=== PATIENT | male | born 1955 ===

== ENCOUNTER 2020-11-18 11:24 | Outpatient (REF) | payer MEDICARE, SELFPAY ==
[2020-11-18 14:45] LABS: Prostate Specific Antigen 2.22 ng/mL (<0.05-4.0)
== END 2020-11-18 11:25 | disposition home or self-care (01) ==
LOC: HO.HMGCLDS 11:24
PROVIDERS: PCP Internal Medicine; Visit Provider Urology
DX: N41.1 Chronic prostatitis (principal); Z12.5 Encounter for screening for malignant neoplasm of prostate
CPT/HCPCS: 36415; 84153

== ENCOUNTER → 2020-11-19 11:04 | Outpatient (BNVA) | payer MEDICARE, SELFPAY | PROVIDERS: PCP Internal Medicine; Referring Provider Internal Medicine; Visit Provider Urology | DX: Z13.89 Encounter for screening for other disorder (principal) | CPT/HCPCS: Q3014 ==

== ENCOUNTER 2021-04-20 11:35 | Outpatient (REF) | payer MEDICARE, SELFPAY ==
[2021-04-20 13:42] LABS: Hematocrit 43.5 % (42-52); Hemoglobin 14.7 g/dl (14.0-18.0); Mean Corpuscular HGB Conc 33.8 g/dl (31.0-36.0); Mean Corpuscular Hemoglobin 31.5 pg (27.0-33.0); Mean Corpuscular Volume 93.3 fL (80-98); Mean Platelet Volume 12.4 fL (9.4-12.4); Platelet Count 134 X10*3/uL (160-400); Red Blood Count 4.66 X10*6/uL (4.60-5.80); White Blood Count 6.6 X10*3/uL (4.8-10.8)
[2021-04-20 14:18] LABS: Alanine Aminotransferase 25 U/L (0-40); Albumin Level 4.4 g/dL (3.5-5.0); Alkaline Phosphatase 83 U/L (39-117); Anion Gap 14 (12-20); Aspartate Amino Transferase 25 U/L (5-37); Bilirubin Total 0.6 mg/dL (0.0-1.0); Blood Urea Nitrogen 13 mg/dL (9-16); Calcium 9.7 mg/dL (8.4-10.2); Carbon Dioxide 24 mmol/L (22-29); Chloride 107 mmol/L (96-108); Cholesterol 132 mg/dL; Estimated Glomerular Filt Rate > 60; Glucose Fasting 94 mg/dL (60-99); HDL Cholesterol 33 mg/dL; LDL Cholesterol Calculated 75 mg/dl; Potassium 4.1 mmol/L (3.3-5.1); Sodium 141 mmol/L (135-145); Total Protein 7.1 g/dL (6.5-8.0); Triglycerides 124 mg/dL
[2021-04-20 14:41] LABS: Prostate Specific Antigen Scr 2.19 ng/mL (<0.05-4.0); Vitamin D 25-OH Total 30.7 ng/mL (>30)
[2021-04-20 16:28] LABS: Glucose Urine UA NEG (NEG); Leukocyte Esterase Urine NEG (NEG); Nitrite Urine NEG (NEG); Urine Blood NEG (NEG); Urine Ketones NEG (NEG); Urine Protein NEG (NEG-TRACE)
[2021-04-20 16:29] LABS: Appearance Urine CLEAR; Color Urine YELLOW
[2021-04-20 16:37] LABS: RBC Urine 0 /HPF (0); WBC Urine 0 /HPF (0-4)
== END 2021-04-20 11:36 | disposition home or self-care (01) ==
LOC: HO.HMGCLDS 11:35
PROVIDERS: PCP Internal Medicine; Visit Provider Internal Medicine
DX: E78.5 Hyperlipidemia, unspecified (principal); E55.9 Vitamin D deficiency, unspecified; N40.0 Benign prostatic hyperplasia without lower urinary tract symptoms; F32.9 Major depressive disorder, single episode, unspecified; Z12.5 Encounter for screening for malignant neoplasm of prostate
CPT/HCPCS: 36415; 80053; 80061; 81001; 82306; 84153; 85027

== ENCOUNTER 2021-05-06 09:38 | Outpatient (REF) | payer MEDICARE, SELFPAY ==
[2021-05-06 12:36] LABS: TSH reflex Free T4 1.55 uIU/mL (0.32-4.0)
== END 2021-05-06 09:39 | disposition home or self-care (01) ==
LOC: HO.HMGCLDS 09:38
PROVIDERS: PCP Internal Medicine; Visit Provider Internal Medicine
DX: F32.9 Major depressive disorder, single episode, unspecified (principal); E78.5 Hyperlipidemia, unspecified; R53.83 Other fatigue; R13.10 Dysphagia, unspecified
CPT/HCPCS: 36415; 84443

== ENCOUNTER → 2021-05-25 13:31 | Outpatient (BNVA) | payer MEDICARE, SELFPAY | PROVIDERS: PCP Internal Medicine | DX: R10.2 Pelvic and perineal pain (principal); N40.0 Benign prostatic hyperplasia without lower urinary tract symptoms; G89.29 Other chronic pain | CPT/HCPCS: 51798; 99212 ==

== ENCOUNTER → 2021-06-16 10:54 | Outpatient (BNVA) | payer MEDICARE, SELFPAY | PROVIDERS: PCP Internal Medicine; Referring Provider Internal Medicine; Visit Provider Nurse Practitioner | DX: K21.9 Gastro-esophageal reflux disease without esophagitis (principal); R13.12 Dysphagia, oropharyngeal phase | CPT/HCPCS: 99202 ==

== ENCOUNTER 2021-07-15 09:49 | Outpatient (REF) | payer MEDICARE, SELFPAY ==
--- NOTE | ~2021-07-15 | FL_ITS ---
EXAMINATION: FL BARIUM SWALLOW CLINICAL INFORMATION: Dysphagia. COMPARISON: None TECHNIQUE: Fluoroscopic assessment of the esophagus was performed in various upright and prone obliquities utilizing thin and thick high density barium contrast material and effervescent granules. A 13 mm barium tablet was also utilized. FINDINGS: There is normal oral bolus control and transfer. Normal posterior tilt of the epiglottis with elevation of the hyoid. There is lack of relaxation of the cricopharyngeal muscle. Upon ingestion of the 13 mm barium tablet, there is initial delayed passage in the region of the cervical esophagus. There was then delayed passage at the midesophagus, which progressed after multiple swallows of water. There was then delay at the region of the gastroesophageal junction, which also cleared with additional water. The esophagus was normal in course, caliber, and contour. There was normal distensibility with no fixed segment of narrowing. No focal mucosal abnormality was identified. Mild esophageal dysmotility was observed. Contrast passed freely across the gastroesophageal junction into the stomach. No significant hiatal hernia. Mild gastroesophageal reflux was observed. FLUOROSCOPY TIME: 1.4 minutes DOSE AREA PRODUCT: 10.377 Gy-cm2 (cárdenas-centimeter squared) FL/FL barium swallow IMPRESSION: Mild esophageal dysmotility as evidenced by delayed passage of the barium tablet. Mild gastroesophageal reflux. Cricopharyngeal bar.
== END 2021-07-15 09:50 | disposition home or self-care (01) ==
LOC: HO.XRAY 09:49
PROVIDERS: PCP Internal Medicine; Visit Provider Nurse Practitioner
DX: R13.12 Dysphagia, oropharyngeal phase (principal); K21.9 Gastro-esophageal reflux disease without esophagitis
CPT/HCPCS: 74220

== ENCOUNTER 2021-07-27 10:30 | Day surgery (SDC) | payer MEDICARE, SELFPAY ==
--- NOTE | 2021-07-26 14:21 | HO.ANESPROP2 ---
Documented by User: Olena Ibarra NP 07/26/21 14:22 HPI - Anesthesia Eval Consult details Narrative: 66yo M for Upper Endoscopy PMF Active Problems Active Problems: All Active Problems (Updated 06/16/21 @ 11:19 by JORY Rodrigues) GERD (gastroesophageal reflux disease) (Acute) Oropharyngeal dysphagia (Acute) Fatigue (Acute) Chronic male pelvic pain (Acute) Vitamin D deficiency (Acute) BPH (benign prostatic hyperplasia) (Acute) Hyperlipidemia (Acute) Depression (Acute) Past Medical History Medical History (Updated 07/27/21 @ 11:03 by Vania Saba RN) Anxiety BPH (benign prostatic hyperplasia) Chronic male pelvic pain Depression Facet arthropathy, lumbar Fatigue GERD (gastroesophageal reflux disease) Hyperlipidemia Insomnia Sleep apnea Vitamin D deficiency Family History Family History Mother COPD (chronic obstructive pulmonary disease) Brain aneurysm Father Carotid stenosis Brother Heart problem Brother No problems noted. Surgical History Surgical History H/O colonoscopy History of rhinoplasty Hx of cholecystectomy Social History Social History Housing: House Patient Tobacco Use Status: Never used Tobacco e-Cigarette/Vaping Use: Never Used Use of substances other than those prescribed or required for medical reasons: No Are you DNR?: No Advance Directives: No Advance Directives Information Provided: Yes Current occupational status: retired Meds Allergies Allergy/AdvReac Type Severity Reaction Status Date / Time Penicillins Allergy Unknown Hives Verified 07/27/21 11:04 Home Medications Medication Instructions Recorded Confirmed Last Taken Type gabapentin 300 mg capsule 300 mg PO BEDTIME 10/29/20 07/21/21 Unknown History olanzapine 5 mg tablet 5 mg PO BEDTIME 10/29/20 07/21/21 Unknown History sertraline 100 mg tablet 100 mg PO DAILY 10/29/20 07/21/21 Unknown History zolpidem 10 mg tablet 10 mg PO BEDTIME PRN 10/29/20 07/21/21 Unknown History Exam Exam Date and Time: July 26, 2021 1421 Pertinent Lab Results Pertinent Lab Results: Laboratory Tests 04/20/21 04/20/21 11:40 11:40 WBC 6.6 Hgb 14.7 Hct 43.5 Plt Count 134 L Sodium 141 Potassium 4.1 Chloride 107 Carbon Dioxide 24 BUN 13 Creatinine 1.06 Assessment and Plan Assessment Anesthesia Assessment: Chart Reviewed Documented by User: Virginie Gomez MD 07/27/21 11:08 [facility] Past Medical History Medical History (Updated 07/27/21 @ 11:03 by Vania Saba RN) Anxiety BPH (benign prostatic hyperplasia) Chronic male pelvic pain Depression Facet arthropathy, lumbar Fatigue GERD (gastroesophageal reflux disease) Hyperlipidemia Insomnia Sleep apnea Vitamin D deficiency Family History Family History Mother COPD (chronic obstructive pulmonary disease) Brain aneurysm Father Carotid stenosis Brother Heart problem Brother No problems noted. Family history of problems with anesthesia: No Surgical History Surgical History H/O colonoscopy History of rhinoplasty Hx of cholecystectomy History of Problems with Anesthesia: No Social History Social History Housing: House Patient Tobacco Use Status: Never used Tobacco e-Cigarette/Vaping Use: Never Used Use of substances other than those prescribed or required for medical reasons: No Are you DNR?: No Advance Directives: No Advance Directives Information Provided: Yes Current occupational status: retired Meds Allergies Allergy/AdvReac Type Severity Reaction Status Date / Time Penicillins Allergy Unknown Hives Verified 07/27/21 11:04 Home Medications Medication Instructions Recorded Confirmed Last Taken Type gabapentin 300 mg capsule 300 mg PO BEDTIME 10/29/20 07/21/21 Unknown History olanzapine 5 mg tablet 5 mg PO BEDTIME 10/29/20 07/21/21 Unknown History sertraline 100 mg tablet 100 mg PO DAILY 10/29/20 07/21/21 Unknown History zolpidem 10 mg tablet 10 mg PO BEDTIME PRN 10/29/20 07/21/21 Unknown History Exam Airway Mallampati Class: II (Missing one bottom) TM Dist: >3cm Neck ROM: Full Loose/Missing/Broken Teeth: Yes (One bottom) Heart: rrr Lungs: cta Assessment and Plan Assessment Anesthesia Assessment: Anesthesia Plan Discussed and Chart Reviewed Final Anesthetic Review Family History of Problems with Anesthesia: No History of Problems with Anesthesia: No NPO: Yes ASA Class: III Final Preanesthetic Review: No Changes in Pt Med Stat and Meds/Allgs Chart Reviewed Patient Risk: Intermediate Procedure Risk: Intermediate Anesthetic Plan Anesthetic Plan: MAC: Disposition: Standard PACU
--- NOTE | 2021-07-27 10:42 | MHC.SHP ---
Pre-Procedural Eval Section A Date of Service: 07/27/21 Section B Chief Complaint: Dysphagia Relevant Family History (Specify if Yes): No Relevant Social History: None Present Medications: see Short Stay Collaborative assessment Medical History: Significant History (Anxiety BPH (benign prostatic hyperplasia) Chronic male pelvic pain Depression Facet arthropathy, lumbar Fatigue GERD (gastroesophageal reflux disease) Hyperlipidemia Insomnia Vitamin D deficiency) History of Previous Operations: Relevant previous surgery/procedure and date(s) (rhinoplasty, cholecystectomy) Allergies: Allergies Allergy/AdvReac Type Severity Reaction Status Date / Time Penicillins Allergy Unknown Hives Verified 07/21/21 12:47 Review of Systems Sugical H&P ROS: Negative: Constitution, Cardiovascular, Respiratory, Neurological, Psychiatric, Hem-Onc, Allergic/Immunologic, Gastrointestinal, Genitourinary, Musculoskeletal, Integumentary, Endocrine and Eyes/Ears/Nose/Throat Exam Surgical H&P Exam: Normal: HEENT, Normal: Heart, Normal: Lungs, Normal: Extremities, Normal: Abdomen, Normal: Skin and Normal: Neurological Plan Diagnosis/Plan: Unchanged I have reviewed the history and physical and performed a pertinent physical examination on my patient. No changes have occurred unless specified.
[2021-07-27 10:45] VITALS: BP 127/76; PULSE 74; RESP 16; TEMP 36.2; O2SAT 97; BMI 28.8
[2021-07-27] MEDS: Lactated Ringers 1,000 ML 100 ML IVCONT (11:02)
--- NOTE | 2021-07-27 11:18 | PM.OP ---
Brief Operative Note Date of Service: 07/27/21 Pre-op diagnosis: dysphagia Post-op diagnosis: same Procedure: see op note Surgeon: Rafaela Kaiser MD Anesthesia: MAC Was an Dynamics Ax Technical Architect used for this Procedure?: No Estimated blood loss (mL): 0 Condition: stable Disposition: PACU
--- NOTE | 2021-07-27 11:19 | W.PM.OPN ---
Operative Note Operative Note Date of Service: 07/27/21 Narrative: Procedure Description: EGD FLEXIBLE TRANSORAL UPPER GASTROINTESTINAL ENDOSCOPY UPPER ENDOSCOPY Consent: Indications for the procedure and potential complications of bleeding, perforation, reaction to medications and missed diagnosis were discussed with the patient and informed consent was obtained. Instrument: Olympus GIF H 190 J mid size upper endoscope Monitoring: Vital signs and clinical assessment, continuous EKG monitoring, Pulse oximetry, Carbon Dioxide monitoring and blood pressure monitoring were done throughout the procedure. Procedure: The patient was placed in the left lateral decubitis position and pre-procedure medications were administered and a bite block was placed. The endoscope was inserted into the mouth and advanced under direct vision to the third part of duodenum. A careful inspection was made as the upper endoscope was withdrawn including a retroflexed examination of the proximal stomach; Findings and interventions are described below. Findings: Larynx:normal Esophagus: GE junction at 40 cm, diaphragm hiatus at 40 cm, no varices or esophagitis, bx taken from GEJ, and distal/proximal esophagus in separate jars. LES dilated to 20 mm and UES to 18 mm. No tears seen. Stomach: Patchy gastric erythema more pronounced in the antrum. Biopsies were obtained. Grade 2 flap valve on retroflexed examination of the cardia. Duodenum: Normal bulb and descending duodenum, bx taken Intervention: Biopsies as noted above, balloon dilation Impression/Findings: gastritis PLAN: Change omeprazole to pantoprazole and see if get better response If h pylori pos then treat if dysphagia persists then refer for esophageal manometry and ph impedance study
[2021-07-27 12:04] VITALS: BP 102/67; PULSE 70; RESP 10; TEMP 36.9; O2SAT 95
[2021-07-27 12:19] VITALS: BP 123/75; PULSE 72; RESP 18; TEMP 36.9; O2SAT 97
== END 2021-07-27 13:55 | disposition home or self-care (01) ==
PROVIDERS: PCP Internal Medicine; Visit Provider Internal Medicine Gastroenterology
PROC: 0DJ08ZZ Inspection of Upper Intestinal Tract, Via Natural or Artificial Opening Endoscopic (ICD-10-PCS; CPT 43235; principal; 2021-07-27 12:00)
DX: R13.12 Dysphagia, oropharyngeal phase (principal); R09.89 Other specified symptoms and signs involving the circulatory and respiratory systems; K21.9 Gastro-esophageal reflux disease without esophagitis; K29.50 Unspecified chronic gastritis without bleeding; K44.9 Diaphragmatic hernia without obstruction or gangrene; J30.9 Allergic rhinitis, unspecified; E78.5 Hyperlipidemia, unspecified; E55.9 Vitamin D deficiency, unspecified; F41.1 Generalized anxiety disorder; R53.83 Other fatigue; Z88.0 Allergy status to penicillin; Z90.49 Acquired absence of other specified parts of digestive tract; Z79.899 Other long term (current) drug therapy
CPT/HCPCS: 43249; 43239; 88305; 88342; C1726; J3010

== ENCOUNTER → 2021-08-11 10:49 | Outpatient (BNVA) | payer MEDICARE, SELFPAY | PROVIDERS: PCP Internal Medicine; Referring Provider Internal Medicine; Visit Provider Nurse Practitioner | DX: K21.9 Gastro-esophageal reflux disease without esophagitis (principal); R13.12 Dysphagia, oropharyngeal phase | CPT/HCPCS: 99212 ==

== ENCOUNTER 2021-09-28 14:39 | Outpatient (REF) | payer MEDICARE, SELFPAY ==
--- NOTE | ~2021-09-28 | FL_ITS ---
EXAMINATION: XR BARIUM SWALLOW CLINICAL INFORMATION: Dysphagia. COMPARISON: None. TECHNIQUE: Fluoroscopic guidance was provided for modified barium swallow performed by the speech and hearing department. The patient was administered liquid barium and food mixed with barium. FINDINGS: No aspiration or penetration is seen. There is some retention seen in the vallecula. See speech and hearing report for detailed findings. FLUOROSCOPY TIME: 1.3 minutes. DOSE AREA PRODUCT: 1.3 Gy-cm2. SAVED IMAGES: 1 saved fluoroscopic image. FL/FL barium swallow modified IMPRESSION: Retention in the vallecula. No aspiration or penetration seen.
--- NOTE | 2021-09-30 17:45 | MHC.SL.IMP ---
Date of Plan of Treatment: 09/28/21 Onset of Symptoms/Illness: 07/29/21 Date Treatment Started: 09/28/21 Admitting Diagnosis: Anxiety BPH Chronic male pelvic pain Depression Fatigue GERD Hyperlipidemia Insomnia Sleep apnea Vitamin D deficiency Primary Speech & Language Diagnosis: R13.12 Oropharyngeal Phase Dysphagia Reason for Today's Visit: 61597 Modified Barium Swallow Study Pre-evaluation Dietary Consistencies: Regular Pre-evaluation Liquid Consistency: Thin Pre-evaluation Medication Administration: Whole with Liquid Medical History: [place], [place] Modified Barium Swallow Study Fluoroscopic Evaluation of Swallowing Function CPT Code 22966 Evaluation Year: 2021 Reason for Study: Patient reports globus sensation. Referring Physician: Lea Hood NP Evaluating Clinician: Grazyna Pacheco MA, CCC-OPERATOR RECEPTIONIST Study Number: 1 Patient Name: Ajay Nolasco Status: Outpatient, Ambulatory Age: 66 Gender: Male MEDICAL HISTORY: Year of Onset or Diagnosis: 2021 Comorbidities: Anxiety BPH Chronic male pelvic pain Depression Fatigue GERD Hyperlipidemia Insomnia Sleep apnea Vitamin D deficiency Current (pre-evaluation) Intake/Diet: Route: PO Diet Grade: Regular Liquid Consistencies: Thin Pre-Study Functional Oral Intake Scale (FOIS): 7- Total oral intake with no restrictions Pain: None reported at time of study SUBJECTIVE: Patient is a 66 year old male who presented to this exam alone. Per chart review, patient was seen by G.I. recently, when he reported that he has had trouble swallowing for a couple months. He reports the sensation that his throat is tightening up when he eats. He reports this only happens with dry foods and never with liquids. Patient stated that he had only ?minor choking that he feels is ?not life threatening.?? Patient denies odynophagia. Patient had upper endoscopy and dilation done mostly empirically per G.I. specialist, to see if it would help. Patient has GERD and also reported that despite the medication he takes, he still feels burning in his throat. He was changed from omeprazole to pantoprazole NA. Patient was ordered MBSS per G.I. with consideration of possible neuro consult. -Barium swallow x-ray 07/15/21: ?Mild esophageal dysmotility as evidenced by delayed passage of the barium tablet. Mild gastroesophageal reflux. Cricopharyngeal bar.? Oral Motor Exam Facial Symmetry: Symmetrical Mouth Occlusion: Normal Oral-Facial Teeth Characteristics: Intact/Normal Oral-Facial Lip Pucker Description: Normal Oral-Facial Smile (Lips) Description: Normal Oral-Facial Puff Cheeks Description: Normal Tongue Size: Normal Tongue Excursion Description: Normal Tongue Range of Movement Description: Normal Tongue Speed of Movement Description: Normal Tongue Strength of Movement (against opposing pressure): Normal Tongue Movement Characteristics: Normal/Absent Is patient able to manage secretions?: Yes Food and Liquid Trials: Oral Impairment: Lip Closure: 0=No labial escape Oral Impairment: Tongue Control During Bolus Hold: Did not test Oral Impairment: Bolus Preparation/Mastication: 1=Slow prolonged chewing/mashing with complete re-collection Oral Impairment: Bolus Transport/Lingual Motion: 2=Slowed tongue motion Oral Impairment: Oral Residue: 1=Trace residue lining oral structures Oral Impairment:Initiation of Pharyngeal Swallow: 3=Bolus head in pyriforms Pharyngeal Impairment: Soft Palate Elevation: 0=No bolus between soft palate (SP)/pharyngeal wall (PW) Pharyngeal Impairment: Laryngeal Elevation: 0=Complete superior movement of thyroid cartilage (see description) Pharyngeal Impairment: Anterior Hyoid Excursion: 0=Complete anterior movement Pharyngeal Impairment: Epiglottic Movement: 0=Complete inversion Pharyngeal Impairment: Laryngeal Vestibular Closure:: 0=Complete: no air/contrast in laryngeal vestibule Pharyngeal Impairment: Pharyngeal Stripping Wave: 0=Present: complete Pharyngeal Impairment: Pharyngeal Contraction: Did not test Pharyngeal Impairment: Pharyngoesophageal Segment Openin=Complete distension and complete duration: no obstruction of flow Pharyngeal Impairment: Tongue Base (TB) Retraction: 3=Wide column of contrast/air between TB and posterior PW Pharyngeal Impairment: Pharyngeal Residue: 2=Collection of residue within or on pharyngeal structures Pharyngeal Impairment: Esophageal Clearance Upright Position: Did not test Impressions and Recommendations Clinical Observations: OBJECTIVE: Time-out: performed at 02:45 Evaluation Start: 02:30; Stop: 02:40 Patient Positioning: Seated 70-90 degrees Viewing Planes: LATERAL ONLY Contrast: MBSImP? Standardized Protocol using commercially prepared, standardized Barium viscosities, including: Varibar? THIN LIQUID (40% w/v, <15 cps) , 1/2 Shortbread Cookie (1 x1 x.25 ) MBSImP ID: [id number] MBSImP Results: Lip closure for intraoral bolus containment resulted in no labial escape. Tongue control during bolus hold could not be assessed due to logistical reasons not related to physiologic impairment. Bolus preparation and mastication resulted in slow, prolonged chewing/mashing but with complete re-collection. Bolus transport/lingual motion was with slowed tongue motion. Oral residue was a trace, lining oral structures. Initiation of the pharyngeal swallow occurred when the bolus head was in the pyriform sinuses. Soft palate elevation resulted in no bolus between the soft palate and the pharyngeal wall. Laryngeal elevation demonstrated complete superior movement of the thyroid cartilage with complete approximation of the arytenoids to the epiglottic petiole. Anterior hyoid excursion demonstrated complete anterior movement. Epiglottic movement resulted in complete inversion. Laryngeal vestibular closure was complete, as indicated by no air or contrast within the laryngeal vestibule at the height of the swallow. Pharyngeal stripping wave was present and complete. Pharyngeal contraction could not be determined due to logistical reasons not related to physiologic impairment. Pharyngoesophageal segment opening was completely distended for complete duration with no obstruction of bolus flow. Tongue base retraction allowed a wide column of contrast or air between the retracted tongue base and the posterior pharyngeal wall. Pharyngeal residue was a collection of residue within or on pharyngeal structures. Esophageal clearance in the upright position could not be assessed due to logistical reasons not related to physiologic impairment. Oral Impairment Score: 6 (absence of score, component 2) Pharyngeal Impairment Score: 5 (absence of score, component 13) Esophageal Impairment Score: --- (absence of score, component 17) Laryngeal Penetration and Aspiration: Neither penetration nor aspiration was observed in today's study with Cookie, Thin. Structural Abnormalities Noted: Consistent with cricopharyngeal bar. ASSESSMENT: Clinician Assessment: This exam was conducted by a multidisciplinary team, which included speech-language pathologist, radiologist, and gyroscopic engineering technician. Patient was seated in upright 90 degree position for lateral view only. Patient trialed the following liquid and solid consistencies: 5 mL thin liquid barium, individual cup sip thin liquid barium, sequential cup sip thin liquid barium, pureed solid (mixture applesauce with barium paste), ground solid (mixture chicken salad with barium paste), regular solid (Farideh Doone cookie coated with barium paste), barium tablet with liquid barium. Oral phase characterized by complete lip closure with no anterior escape; slow mastication with piece meal deglutition pattern, resulting in good oral clearance; slowed posterior lingual transport of bolus; delayed initiation of pharyngeal swallow trigger. No nasopharyngeal reflux. Complete laryngeal elevation, with complete epiglottic inversion. No evidence of aspiration or penetration with solids and liquids. No obstruction of flow through pharyngoesophageal segment opening. Trace pooling of liquid in valleculae and pyriforms, which subsequently cleared. Mild residue with consumption of solids in valleculae and pyriforms, which cleared with liquid. Liquid Intake Recommendation: Thin Dietary Recommendations: Regular Medication Administration: Whole with Liquid Compensatory Strategies Recommended: Sitting Upright (90 deg) Double Swallow Small Bites and Sips Alternate Liquids/Solids Supervision during eating and or drinking: None Needed Recommendation for Speech Therapy: NA:Typical Evaluation Text Comment: PLAN: Intake Recommendations: Route: PO Diet Grade: Regular Liquid Consistencies: Thin Post-Study Functional Oral Intake Scale (FOIS): 7- Total oral intake with no restrictions Recommend patient to resume unmodified diet textures- regular solids, thin liquids, pills whole with liquid. OPERATOR RECEPTIONIST discussed with patient strategies to promote pharyngeal clearance: -small bites, one bite at a time -chew food well -moisten food with sauce/gravy as needed -alternate bite of food with sip of liquid Prognosis for Improvement: The prognosis for the patient to meet nutritional needs by mouth is good based on degree of impairment. Clinician - Supplemental, Miscellaneous Communication: It is important to note MBSS objective studies are snapshots in time and Patient function might vary with factors such as time of day or concomitant medical conditions. For this reason, the final treatment plan for this patient should rest with their medical care team. Additional recommendations should be considered with the totality of the Patient in mind. Thank for the opportunity to participate in the care of this patient. If you have any questions about the content of this report, please contact the [facility] at [facility]. Lay Out Machine Operator Clinician/Clinical Fellow: No Supervisory Statement: N/A Speech Language Pathologist: Grazyna Pacheco M.A., [facility]-OPERATOR RECEPTIONIST
== END 2021-09-28 14:40 | disposition home or self-care (01) ==
LOC: HO.XRAY 14:39
PROVIDERS: Visit Provider Nurse Practitioner
DX: R13.12 Dysphagia, oropharyngeal phase (principal)
CPT/HCPCS: 74230; 92611

== ENCOUNTER → 2021-10-04 13:42 | Outpatient (BNVA) | payer MEDICARE, SELFPAY | PROVIDERS: PCP Internal Medicine; Referring Provider Internal Medicine; Visit Provider Nurse Practitioner | DX: R13.12 Dysphagia, oropharyngeal phase (principal); K21.9 Gastro-esophageal reflux disease without esophagitis | CPT/HCPCS: 99212 ==

== ENCOUNTER 2021-10-18 07:39 | Outpatient (REF) | payer MEDICARE, SELFPAY ==
[2021-10-18 11:41] LABS: Hematocrit 44.8 % (42.0-52.0); Mean Corpuscular HGB Conc 33.5 g/dl (31.0-36.0); Mean Corpuscular Hemoglobin 31.4 pg (27.0-33.0); Mean Corpuscular Volume 93.7 fL (80.0-98.0); Mean Platelet Volume 12.9 fL (9.4-12.4); Platelet Count 119 X10*3/uL (160-400); Red Blood Count 4.78 X10*6/uL (4.60-5.80); Red Cell Distribution Width 12.9 % (11.0-16.0); White Blood Count 7.4 X10*3/uL (4.8-10.8)
[2021-10-18 12:08] LABS: Vitamin D 25-OH Total 28.1 ng/mL (>30)
[2021-10-18 12:12] LABS: Alanine Aminotransferase 22 U/L (0-40); Albumin Level 4.3 g/dL (3.5-5.0); Alkaline Phosphatase 89 U/L (39-117); Anion Gap 12 (12-20); Aspartate Amino Transferase 22 U/L (5-37); Bilirubin Total 0.8 mg/dL (0.0-1.0); Blood Urea Nitrogen 19 mg/dL (9-16); Calcium 9.8 mg/dL (8.4-10.2); Carbon Dioxide 27 mmol/L (22-29); Chloride 106 mmol/L (96-108); Cholesterol 130 mg/dL; Estimated Glomerular Filt Rate > 60; Glucose Fasting 106 mg/dL (60-99); HDL Cholesterol 31 mg/dL; LDL Cholesterol Calculated 76 mg/dl; Potassium 3.9 mmol/L (3.3-5.1); Sodium 141 mmol/L (135-145); Total Protein 7.2 g/dL (6.5-8.0); Triglycerides 115 mg/dL
== END 2021-10-18 07:40 | disposition home or self-care (01) ==
LOC: HO.HMGCLDS 07:39
PROVIDERS: Visit Provider Internal Medicine
DX: E55.9 Vitamin D deficiency, unspecified (principal); E78.5 Hyperlipidemia, unspecified; R53.83 Other fatigue; R13.10 Dysphagia, unspecified
CPT/HCPCS: 36415; 80053; 80061; 82306; 85027

== ENCOUNTER → 2021-12-16 07:41 | Outpatient (BNVA) | payer MEDICARE, SELFPAY | PROVIDERS: PCP Internal Medicine; Referring Provider Internal Medicine; Visit Provider Nurse Practitioner | DX: Z01.818 Encounter for other preprocedural examination (principal) | CPT/HCPCS: 99202 ==

== ENCOUNTER 2022-04-14 12:01 | Outpatient (REF) | payer MEDICARE, SELFPAY ==
[2022-04-14 13:35] LABS: MANUAL DIFF FLAG NO
[2022-04-14 13:47] LABS: Basophils Absolute Auto 0.1 X10*3/uL (0.0-0.2); Basophils Percent Auto 1.1 % (0-2); Eosinophils Absolute Auto 0.5 X10*3/uL (0.0-0.4); Eosinophils Percent Auto 7.5 % (0-4); Hematocrit 43.9 % (42.0-52.0); Hemoglobin 15.2 g/dl (14.0-18.0); Imm Gran Abs Auto 0.03 X10*3/uL (0.00-0.03); Imm Gran Pct Auto 0.5 % (0.0-0.4); Lymphocytes Absolute Auto 1.8 X10*3/uL (1.2-4.9); Lymphocytes Percent Auto 27.7 % (20-40); Mean Corpuscular HGB Conc 34.6 g/dl (31.0-36.0); Mean Corpuscular Volume 92.4 fL (80.0-98.0); Mean Platelet Volume 12.7 fL (9.4-12.4); Monocytes Absolute Auto 0.4 X10*3/uL (0.1-1.2); Monocytes Percent Auto 6.3 % (2-11); Neutrophils Absolute Auto 3.7 x10*3/uL (2.0-8.3); Neutrophils Percent Auto 56.9 % (45-73); Platelet Count 128 X10*3/uL (160-400); Red Blood Count 4.75 X10*6/uL (4.60-5.80); Red Cell Distribution Width 12.8 % (11.0-16.0); White Blood Count 6.4 X10*3/uL (4.8-10.8)
[2022-04-14 14:01] LABS: Alanine Aminotransferase 24 U/L (0-40); Albumin Level 4.7 g/dL (3.5-5.0); Alkaline Phosphatase 79 U/L (39-117); Anion Gap 12 (12-20); Aspartate Amino Transferase 25 U/L (5-37); Bilirubin Total 0.6 mg/dL (0.0-1.0); Blood Urea Nitrogen 12 mg/dL (9-16); Calcium 9.5 mg/dL (8.4-10.2); Carbon Dioxide 27 mmol/L (22-29); Chloride 105 mmol/L (96-108); Cholesterol 131 mg/dL; Estimated Glomerular Filt Rate > 60; Glucose Fasting 99 mg/dL (60-99); HDL Cholesterol 34 mg/dL; LDL Cholesterol Calculated 64 mg/dl; Potassium 4.1 mmol/L (3.3-5.1); Sodium 140 mmol/L (135-145); Total Protein 7.4 g/dL (6.5-8.0); Triglycerides 169 mg/dL
[2022-04-14 14:22] LABS: Vitamin D 25-OH Total 32.3 ng/mL (>30)
== END 2022-04-14 12:02 | disposition home or self-care (01) ==
LOC: HO.HMGCLDS 12:01
PROVIDERS: PCP Internal Medicine; Visit Provider Internal Medicine
DX: E78.5 Hyperlipidemia, unspecified (principal); N40.0 Benign prostatic hyperplasia without lower urinary tract symptoms; E55.9 Vitamin D deficiency, unspecified
CPT/HCPCS: 36415; 80053; 80061; 82306; 85025

== ENCOUNTER 2022-04-20 06:53 | Day surgery (SDC) | payer MEDICARE, SELFPAY ==
[2022-04-13 14:10] VITALS: BMI 29.9
--- NOTE | 2022-04-19 12:47 | HO.ANESPROP2 ---
Documented by User: Olena Ibarra NP 04/19/22 12:48 HPI - Anesthesia Eval Consult details Narrative: 66yo M for Colonoscopy s/p EGD 07/2021 with MAC PMFSH Active Problems Active Problems: All Active Problems (Updated 04/14/22 @ 11:46 by Bethanie Rodgers MD) Dysplastic nevi (Acute) Oropharyngeal dysphagia (Acute) Colon cancer screening (Acute) Annual physical exam (Acute) GERD (gastroesophageal reflux disease) (Acute) Fatigue (Acute) Chronic male pelvic pain (Acute) Vitamin D deficiency (Acute) BPH (benign prostatic hyperplasia) (Acute) Hyperlipidemia (Acute) Depression (Acute) Past Medical History Medical History Annual physical exam Anxiety BPH (benign prostatic hyperplasia) Chronic male pelvic pain Depression Facet arthropathy, lumbar Fatigue GERD (gastroesophageal reflux disease) Hyperlipidemia Insomnia Sleep apnea Vitamin D deficiency Family History Family History Mother COPD (chronic obstructive pulmonary disease) Brain aneurysm Father Carotid stenosis Brother Heart problem Brother No problems noted. Family history of problems with anesthesia: No Surgical History Surgical History H/O colonoscopy History of endoscopy History of rhinoplasty Hx of cholecystectomy History of Problems with Anesthesia: No Social History Social History Housing: House Patient Tobacco Use Status: Never used Tobacco e-Cigarette/Vaping Use: Never Used Use of substances other than those prescribed or required for medical reasons: No Are you DNR?: No Advance Directives: No Advance Directives Information Provided: Yes Advance Directives on File: No Current occupational status: retired Cognitive needs: No Hearing needs: No Vision needs: Yes Meds Allergies Allergy/AdvReac Type Severity Reaction Status Date / Time Penicillins Allergy Unknown Hives Verified 04/14/22 11:13 Home Medications Medication Instructions Recorded Confirmed Last Taken Type gabapentin 300 mg capsule 300 mg PO BEDTIME 10/29/20 04/14/22 Unknown History olanzapine 5 mg tablet 5 mg PO BEDTIME 10/29/20 04/14/22 Unknown History sertraline 100 mg tablet 100 mg PO DAILY 10/29/20 04/14/22 07/27/21 09:00 History zolpidem 10 mg tablet 10 mg PO BEDTIME PRN Sleep 10/29/20 04/14/22 Unknown History Exam Exam Date and Time: April 19, 2022 1247 Height,Weight and Vital Signs: Height 5 ft 8.5 in Weight 90.718 kg Pertinent Lab Results Pertinent Lab Results: Laboratory Tests 04/14/22 04/14/22 12:06 12:06 WBC 6.4 Hgb 15.2 Hct 43.9 Plt Count 128 L Sodium 140 Potassium 4.1 Chloride 105 Carbon Dioxide 27 BUN 12 Creatinine 1.05 Assessment and Plan Final Anesthetic Review Family History of Problems with Anesthesia: No History of Problems with Anesthesia: No Documented by User: Gracia Horne MD 04/20/22 07:56 [facility] Active Problems Active Problems: All Active Problems (Updated 04/14/22 @ 11:46 by Bethanie Rodgers MD) Dysplastic nevi (Acute) Oropharyngeal dysphagia (Acute) Colon cancer screening (Acute) Annual physical exam (Acute) GERD (gastroesophageal reflux disease) (Acute) Fatigue (Acute) Chronic male pelvic pain (Acute) Vitamin D deficiency (Acute) BPH (benign prostatic hyperplasia) (Acute) Hyperlipidemia (Acute) Depression (Acute) CHAD- not using CPAP machine. Unable to tolerate Past Medical History Medical History Annual physical exam Anxiety BPH (benign prostatic hyperplasia) Chronic male pelvic pain Depression Facet arthropathy, lumbar Fatigue GERD (gastroesophageal reflux disease) Hyperlipidemia Insomnia Sleep apnea Vitamin D deficiency Family History Family History Mother COPD (chronic obstructive pulmonary disease) Brain aneurysm Father Carotid stenosis Brother Heart problem Brother No problems noted. Surgical History Surgical History H/O colonoscopy History of endoscopy History of rhinoplasty Hx of cholecystectomy Social History Social History Housing: House Patient Tobacco Use Status: Never used Tobacco e-Cigarette/Vaping Use: Never Used Use of substances other than those prescribed or required for medical reasons: No Are you DNR?: No Advance Directives: No Advance Directives Information Provided: Yes Advance Directives on File: No Current occupational status: retired Cognitive needs: No Hearing needs: No Vision needs: Yes Meds Allergies Allergy/AdvReac Type Severity Reaction Status Date / Time Penicillins Allergy Unknown Hives Verified 04/14/22 11:13 Home Medications Medication Instructions Recorded Confirmed Last Taken Type gabapentin 300 mg capsule 300 mg PO BEDTIME 10/29/20 04/14/22 Unknown History olanzapine 5 mg tablet 5 mg PO BEDTIME 10/29/20 04/14/22 Unknown History sertraline 100 mg tablet 100 mg PO DAILY 10/29/20 04/14/22 07/27/21 09:00 History zolpidem 10 mg tablet 10 mg PO BEDTIME PRN Sleep 10/29/20 04/14/22 Unknown History Exam Height,Weight and Vital Signs: Height 5 ft 8.5 in Weight 90.718 kg Vital Signs Temp Pulse Resp BP Pulse Ox O2 Del Method 04/20/22 07:26 96.2 F L 56 16 141/84 H 97 Room Air Airway Mallampati Class: II TM Dist: >3cm Neck ROM: Full Loose/Missing/Broken Teeth: Yes (Some extractions) Heart: RRR Lungs: CTAB Assessment and Plan Assessment Anesthesia Assessment: Anesthesia Plan Discussed and Chart Reviewed Final Anesthetic Review NPO: Yes ASA Class: III Final Preanesthetic Review: No Changes in Pt Med Stat, Meds/Allgs Chart Reviewed, Consent Obtained/Reviewed and Anes Risks/Benef Reviewed Patient Risk: Intermediate Procedure Risk: Low Assessment/Block/Sedation in SS: Assess/Block/Sedation-SS Anesthetic Plan Anesthetic Plan: MAC: Disposition: Standard PACU
--- NOTE | 2022-04-20 07:07 | MHC.SHP ---
Pre-Procedural Eval Section A Date of Service: 04/20/22 Section B Chief Complaint: screening Relevant Family History (Specify if Yes): No Relevant Social History: None Present Medications: see Short Stay Collaborative assessment Medical History: Significant History (Anxiety BPH (benign prostatic hyperplasia) Chronic male pelvic pain Depression Facet arthropathy, lumbar Fatigue GERD (gastroesophageal reflux disease) Hyperlipidemia Insomnia Sleep apnea Vitamin D deficiency) History of Previous Operations: Relevant previous surgery/procedure and date(s) (H/O colonoscopy History of endoscopy History of rhinoplasty Hx of cholecystectomy) Allergies: Allergies Allergy/AdvReac Type Severity Reaction Status Date / Time Penicillins Allergy Unknown Hives Verified 04/14/22 11:13 Review of Systems Sugical H&P ROS: Negative: Constitution, Cardiovascular, Respiratory, Neurological, Psychiatric, Hem-Onc, Allergic/Immunologic, Gastrointestinal, Genitourinary, Musculoskeletal, Integumentary, Endocrine and Eyes/Ears/Nose/Throat Exam Surgical H&P Exam: Normal: HEENT, Normal: Heart, Normal: Lungs, Normal: Extremities, Normal: Abdomen, Normal: Skin and Normal: Neurological Plan Diagnosis/Plan: Unchanged I have reviewed the history and physical and performed a pertinent physical examination on my patient. No changes have occurred unless specified.
[2022-04-20 07:08] VITALS: BMI 28.8
[2022-04-20] MEDS: Lactated Ringers 1,000 ML 100 ML IVCONT (07:23)
[2022-04-20 07:26] VITALS: BP 141/84; PULSE 56; RESP 16; TEMP 35.7; O2SAT 97
--- NOTE | 2022-04-20 08:18 | P.OP_ITS ---
Operative Note Operative Note Date of Service: 04/20/22 Narrative: Operative Information Procedure Description: Colonoscopy Indication: screening Anesthesia: MAC COLONOSCOPY Instrument: Olympus variable stiffness pediatric scope 190L Colonoscopy Monitoring: Vital signs and clinical assessment, continuous EKG monitoring, Pulse oximetry, Carbon Dioxide monitoring and blood pressure monitoring were done throughout the procedure. Colon withdrawal time was 7 minutes. Procedure: The patient was placed in the left lateral decubitis position and pre-procedure medications were administered. After a digital rectal examination of the ano-rectum, the video colonoscope was inserted into the rectum and advanced through the colon to the cecum/TI. The colonoscope was slowly withdrawn in a retrograde panoramic fashion and the colon mucosa was carefully examined including a retroflexed view of the rectum. Findings and interventions are described below. Procedure Difficulty: easy Findings: Terminal Ileum-normal Right sided retroflexion was normal Cecum:normal Ascending Colon: normal Transverse Colon - scattered diverticula seen Descending Colon:normal Sigmoid Colon: few scattered diverticula seen Rectum: Retroflexion with small internal hemorrhoids, grade I Anorectum - normal Colon preparation: [place] Bowel Preparation Scale Right colon; 3 Transverse colon: 3 Left colon; 3 (0 = Unprepared colon segment with mucosa not seen due to solid stool that cannot be cleared. 1 = Portion of mucosa of the colon segment seen, but other areas of the colon segment not well seen due to staining, residual stool and/or opaque liquid. 2 = Minor amount of residual staining, small fragments of stool and/or opaque liquid, but mucosa of colon segment seen well. 3 = Entire mucosa of colon segment seen well with no residual staining, small fragments of stool or opaque liquid) Impression and Post Procedure Diagnosis: internal hemorrhoids diverticular disease Plan: High fiber diet leaflet Avoid straining at stool, epsom salts and sitz bath, anusol supps or cream Repeat Colonoscopy in 10 years or earlier if clinically indicated Above findings were reviewed with the patient and relevant handouts were provided if indicated.
[2022-04-20 08:37] VITALS: BP 108/67; PULSE 58; RESP 16; TEMP 36.9; O2SAT 99
[2022-04-20 08:53] VITALS: BP 130/86; PULSE 63; RESP 16; TEMP 36.1; O2SAT 98
== END 2022-04-20 09:31 | disposition home or self-care (01) ==
PROVIDERS: PCP Internal Medicine; Visit Provider Internal Medicine Gastroenterology
PROC: 0DJD8ZZ Inspection of Lower Intestinal Tract, Via Natural or Artificial Opening Endoscopic (ICD-10-PCS; CPT 45378; principal; 2022-04-20 08:00)
DX: Z12.11 Encounter for screening for malignant neoplasm of colon (principal); K57.30 Diverticulosis of large intestine without perforation or abscess without bleeding; K64.0 First degree hemorrhoids; K21.9 Gastro-esophageal reflux disease without esophagitis; G47.33 Obstructive sleep apnea (adult) (pediatric); E78.5 Hyperlipidemia, unspecified; E55.9 Vitamin D deficiency, unspecified; F41.1 Generalized anxiety disorder; N40.0 Benign prostatic hyperplasia without lower urinary tract symptoms; G89.29 Other chronic pain; R10.2 Pelvic and perineal pain; Z79.899 Other long term (current) drug therapy; Z88.0 Allergy status to penicillin; Z90.49 Acquired absence of other specified parts of digestive tract
CPT/HCPCS: G0105

== ENCOUNTER → 2022-05-02 08:15 | Outpatient (BNVA) | payer MEDICARE, SELFPAY | PROVIDERS: PCP Internal Medicine; Visit Provider Nurse Practitioner | DX: Z12.11 Encounter for screening for malignant neoplasm of colon (principal); R13.12 Dysphagia, oropharyngeal phase; K21.9 Gastro-esophageal reflux disease without esophagitis | CPT/HCPCS: 99212 ==

== ENCOUNTER 2022-09-21 09:54 | Outpatient (REF) | payer MEDICARE, SELFPAY ==
[2022-09-21 11:15] LABS: MANUAL DIFF FLAG NO
[2022-09-21 11:17] LABS: Basophils Absolute Auto 0.1 X10*3/uL (0.0-0.2); Eosinophils Absolute Auto 0.4 X10*3/uL (0.0-0.4); Eosinophils Percent Auto 7.1 % (0-4); Hematocrit 46.7 % (42.0-52.0); Hemoglobin 15.4 g/dl (14.0-18.0); Imm Gran Abs Auto 0.01 X10*3/uL (0.00-0.03); Imm Gran Pct Auto 0.2 % (0.0-0.4); Lymphocytes Absolute Auto 1.6 X10*3/uL (1.2-4.9); Lymphocytes Percent Auto 25.4 % (20-40); Mean Corpuscular Hemoglobin 30.9 pg (27.0-33.0); Mean Corpuscular Volume 93.6 fL (80.0-98.0); Mean Platelet Volume 12.2 fL (9.4-12.4); Monocytes Absolute Auto 0.3 X10*3/uL (0.1-1.2); Neutrophils Absolute Auto 3.8 x10*3/uL (2.0-8.3); Neutrophils Percent Auto 61.3 % (45-73); Platelet Count 131 X10*3/uL (160-400); Red Blood Count 4.99 X10*6/uL (4.60-5.80); Red Cell Distribution Width 12.8 % (11.0-16.0); White Blood Count 6.2 X10*3/uL (4.8-10.8)
[2022-09-21 14:45] LABS: TSH reflex Free T4 1.73 uIU/mL (0.32-4.0); Vitamin D 25-OH Total 29.4 ng/mL (>30)
[2022-09-21 14:52] LABS: Alanine Aminotransferase 24 U/L (0-40); Albumin Level 4.5 g/dL (3.5-5.0); Alkaline Phosphatase 95 U/L (39-117); Anion Gap 13 (12-20); Aspartate Amino Transferase 30 U/L (5-37); Bilirubin Total 0.5 mg/dL (0.0-1.0); Blood Urea Nitrogen 19 mg/dL (9-16); Calcium 9.6 mg/dL (8.4-10.2); Carbon Dioxide 25 mmol/L (22-29); Chloride 105 mmol/L (96-108); Cholesterol 130 mg/dL; Estimated Glomerular Filt Rate > 60; Glucose Fasting 106 mg/dL (60-99); HDL Cholesterol 37 mg/dL; LDL Cholesterol Calculated 78 mg/dl; PSA,Total (Free>4and<10) 2.19 ng/mL (0.00-4.00); Potassium 4.3 mmol/L (3.3-5.1); Sodium 139 mmol/L (135-145); Total Protein 7.3 g/dL (6.5-8.0); Triglycerides 77 mg/dL
[2022-09-21 15:00] LABS: Folate 13.9 ng/mL (> or = 4.0); Vitamin B12 417 pg/mL (200-900)
== END 2022-09-21 09:55 | disposition home or self-care (01) ==
LOC: HO.HMGCLDS 09:54
PROVIDERS: Absent Provider Urology; PCP Internal Medicine; Visit Provider Internal Medicine
DX: Z00.00 Encounter for general adult medical examination without abnormal findings (principal); Z12.5 Encounter for screening for malignant neoplasm of prostate; E55.9 Vitamin D deficiency, unspecified; E78.5 Hyperlipidemia, unspecified; N40.0 Benign prostatic hyperplasia without lower urinary tract symptoms
CPT/HCPCS: 36415; 80053; 80061; 82306; 82607; 82746; 84153; 84443; 85025

== ENCOUNTER 2022-10-04 10:48 | Outpatient (REF) | payer MEDICARE, SELFPAY ==
--- NOTE | ~2022-10-04 | XR_ITS ---
EXAMINATION: XR CHEST CLINICAL INFORMATION: Other general symptoms and signs COMPARISON: 10/01/2009 TECHNIQUE: 2 views of the chest were obtained. FINDINGS: No significant abnormality is noted involving the heart, lungs, mediastinum, bony thorax or soft tissues. There is some mild wedging of a midthoracic vertebral body unchanged when compared to 2009 XR/XR chest 2V IMPRESSION: No acute intrathoracic disease.
[2022-10-04 15:06] LABS: Influenza A PCR NEGATIVE (Negative); Influenza B PCR NEGATIVE (Negative); Resp Syncy Virus RNA Qual PCR NEGATIVE (Negative); SARS COV2 PCR INHOUSE NEGATIVE (Negative)
== END 2022-10-04 10:49 | disposition home or self-care (01) ==
LOC: HO.HMGCX 10:48
PROVIDERS: PCP Internal Medicine; Visit Provider Nurse Practitioner Family
DX: Z20.822 Contact with and (suspected) exposure to COVID-19 (principal); R68.89 Other general symptoms and signs
CPT/HCPCS: 0241U; 71046

== ENCOUNTER → 2022-11-17 10:12 | Outpatient (BNVA) | payer MEDICARE, SELFPAY | PROVIDERS: PCP Internal Medicine; Visit Provider Urology | DX: N40.0 Benign prostatic hyperplasia without lower urinary tract symptoms (principal); R10.2 Pelvic and perineal pain; G89.29 Other chronic pain | CPT/HCPCS: 51798; 99212 ==

== ENCOUNTER → 2023-04-12 08:01 | Outpatient (REF) | payer MEDICARE, SELFPAY ==
--- NOTE | 2023-04-12 08:02 | CA_ITS ---
Acquisition Time: 2023-04-12 08:13:19 Total Exercise Time: 00:07:12 Test Indications: SOB Medications: SEE H Protocol: MIKAEL Max HR: 137 BPM 90% of Pred: 152 BPM Max BP: 128/068 mmHG Max Work Load: 8.8 METS Exercise stress test exercise 7 min 12 sec acheiving 88% MPHR, with mild SOB. no chest discomfort, isolated PVCs and PACs, with normotensive response to exericse, without EKG changes. Breathing returned to normal at rest. Test reviewed with Dr Bishop. Referred By: Bethanie Rodgers Overread By: BLADIMIR BISHOP
== END ==
LOC: HO.CARD 08:01
PROVIDERS: PCP Internal Medicine; Visit Provider Internal Medicine
DX: I20.8 Other forms of angina pectoris (principal); R06.09 Other forms of dyspnea
CPT/HCPCS: 93017

== ENCOUNTER → 2023-04-12 08:02 | Outpatient (BNV) | payer MEDICARE, SELFPAY | PROVIDERS: PCP Internal Medicine; Visit Provider Internal Medicine | DX: R06.02 Shortness of breath (principal) | CPT/HCPCS: 93016; 93018 ==

== ENCOUNTER 2023-04-25 11:26 | Outpatient (AMB) | payer MEDICARE, SELFPAY ==
[2023-04-25 11:35] VITALS: BP 100/66; PULSE 63; O2SAT 98; BMI 24.0
--- NOTE | 2023-04-25 11:35 | A.OFFVIS_ITS ---
Intake Vital Signs 04/25/23 11:35 Height 5 ft 8.5 in Weight 160 lb BMI 24.0 BP 100/66 Blood Pressure Location Lt brachial Position Sitting Pulse 63 Pulse Source Pulse Oximeter Pulse Oximetry (%) 98 Oxygen Delivery Method Room Air Intake Visit Reasons: [facility] G0439 11/01/21 Allergies Penicillins Allergy (Unknown, Verified 04/25/23 11:38) Hives Medication List - Last Reconciled 04/25/23 by Bethanie Rodgers MD gabapentin 300 mg PO BEDTIME omeprazole 40 mg PO DAILY sertraline 100 mg PO DAILY simvastatin 20 mg PO DAILY tamsulosin 0.4 mg PO DAILY 90 days zolpidem 10 mg PO BEDTIME PRN HPI [place] [id number] 11/01/21 HPI Details Patient presents for new visit. He lost 20 lb since the last visit, reports poor appetite and eating less frequently. He denies abdominal pain nausea vomiting change in bowel habits, cough night sweats shortness of breath, worsening depression. Patient follows up with psychiatrist every 3 months. Initiated the conversation about Advanced Directives. Advanced Directives help? patients prepare for current and future decisions about their medical treatment? and place of care. Discussed with patient that it is a process where a patients? current condition and prognosis are reviewed, their wishes for information? regarding their illness are elicited, and likely medical dilemmas are presented? and options discussed. The form can be amended as needed, reviewed yearly and? make changes as needed IPPE/AWV ? year old presents? for her ? Annual? Wellness Visit, initial visit.? Medical / Social History Reviewed? Past Medical History ?Yes? . ? [place]? of Care / Care Team list updated ?Yes . ? Surgical/Hospitalization? History ?Yes . ? Current Medications? (including OTC and supplements) ?Yes . ? Family History ?Yes? . ? Tobacco? Control form ?Yes . ? AUDIT-C (Alcohol use) form? ?Yes . ? Illicit drug use in Social? History ?Yes . ? Current diagnosis of? depression? ?No ? Appropriate PHQ2/PHQ9? completed ?Yes . ? Data entered by ?Medical? [employer] and reviewed by provider ? Fall Risk ? Fall? History? Have you had any falls with? injury in the past year? ?No . ? Have you had two or more? falls in the past year? ?No . ? Fall Risk Assessment: ?No? falls in the past year . ? HRA filled out by? the patient, reviewed by Provider and scanned. ? IPPE/AWV ? Balance? [place]? ?Yes . ? Tandem? walk ?Yes . ? Walk and? Turn ?Yes . ? Rise from? sit to stand ?Yes . ?Vision? Corrective? lens ?Yes ? Vision? screen ? Up-to-date, has an appointment [] for vision? screening and glaucoma screening ?Hearing? Whisper? test ?pass .? Initiated the conversation about Advanced Directives. Advanced Directives help? patients prepare for current and future decisions about their medical treatment? and place of care. Discussed with patient that it is a process where a patients? current condition and prognosis are reviewed, their wishes for information? regarding their illness are elicited, and likely medical dilemmas are presented? and options discussed. The form can be amended as needed, reviewed yearly and? make changes as needed Written? Plan?Completed. See Patient? Documents. [facility] Medical History Annual physical exam Anxiety BPH (benign prostatic hyperplasia) Chronic male pelvic pain Depression Facet arthropathy, lumbar Fatigue Flu-like symptoms GERD (gastroesophageal reflux disease) Hyperlipidemia Insomnia Sleep apnea Vitamin D deficiency Surgical History H/O colonoscopy History of endoscopy History of rhinoplasty Hx of cholecystectomy Family History Mother COPD (chronic obstructive pulmonary disease) Brain aneurysm Father Carotid stenosis Brother Heart problem Brother No problems noted. Social History Housing: House Patient Tobacco Use Status: Never used Tobacco e-Cigarette/Vaping Use: Never Used Current occupational status: retired Cognitive needs: No Hearing needs: No Vision needs: Yes Questionnaire Medicare Wellness Checkup [age] 65-68 What gender do you identify with?: male During the past 4 weeks, how much have you been bothered by emotional problems such as feeling anxious, depressed, irritable, sad or downhearted, and blue?: not at all During the past 4 weeks, has your physical & emotional health limited your social activities with family, friends, neighbors, or groups?: not at all During the past 4 weeks, how much bodily pain have you generally had?: mild pain During the past 4 weeks, was someone available to help you if you needed & wanted help?: yes, quite a bit During the past 4 weeks, what was the hardest physical activity you could do for at least 2 minutes?: moderate Can you get to places out of walking distance without help? (For eg., can you travel alone on buses, taxis or drive your car?): Yes Can you go shopping for groceries or clothes without someone's help?: Yes Can you prepare your own meals?: Yes Can you do your housework without help?: Yes Because of any health problems, do you need the help of another person with your personal care needs such as eating, bathing, dressing or getting around the house?: No Can you handle your own money without help?: Yes During the past 4 weeks, how would you rate your health in general?: fair During the past 4 weeks how have things been going for you?: good & bad parts about equal Are you having difficulties driving your car?: no Do you always fasten your seat belt when you are in a car?: yes, usually During past 4 weeks, have you been bothered by the following: never: Sexual problems? and Problems using the telephone?, seldom: Trouble eating well? and Teeth or denture problems? and sometimes: Falling or dizzy when standing up and Tiredness or fatigue? Have you fallen 2 or more times in the past year?: No Are you afraid of falling?: No Are you a smoker?: no During the past 4 weeks, how many drinks of wine, beer, or other alcoholic beverages did you have?: 2-5 drinks per week Do you exercise for about 20 minutes 3 or more times a week?: yes, some of the time Have you been given information to help with the following?: no: Hazards in your house that might hurt you? and no: Keeping track of your medications? How often do you have trouble taking medicines the way you have been told to take them?: I always take medicine as prescribed How confident are you that you can control & manage most of your health problems?: somewhat confident What is your race?: White Mini Mental State Exam (MMSE) Orientation What is the (year) (season) (date) (day) (month)?: year, season, date, day and month Where are we (state) (county) (town or city) (hospital) (floor)?: state, county, town or city, hospital/clinic and floor Registration Name of 3 unrelated objects clearly and slowly, then ask patient to repeat all 3 of them. (1st repeat determines score. Make sure they can repeat all three): object 1, object 2 and object 3 Attention & Calculation (CHOOSE ONE) Ask pt to begin with 100 & count backward by 7. Stop after 5 repeats. If pt cannot ask them to spell the word WORLD backward.: 93 Spell WORLD backwards (DLROW): 5 letters Recall Ask patient to repeat the 3 items from question #3.: object 1, object 2 and object 3 Language Show patient a wristwatch & ask what it is. Repeat for pencil.: watch and pencil Ask the patient to repeat the phrase 'No ifs, ands, or buts' after you.: correct Ask the patient to 'take a piece of paper with their right hand' 'fold paper in half' 'place paper on floor': take paper in right hand, fold paper in half and place paper on floor Print the sentence 'CLOSE YOUR EYES' on a piece. If patient actually closes eyes then score.: followed written direction Give patient a blank piece of paper & ask to write a sentence. Score if it contains a noun & verb.: sentence contains subject and verb Ask patient to copy figure of intersecting pentagons exactly. Score if all 10 angles & 2 intersects are included.: all 10 angles present & 2 are intersected Score Score: 31 Activity of Daily Living Bathing - sponge bath, tub bath or shower: receives no assistance (gets in/out by self, if usual bathing means Dressing - getting clothes from closets & drawers, including inner/outer garments & fasteners.: gets clothes & gets completely dressed without help Toileting - going to the 'toilet room' for urine/bowel elimination & cleaning self/arranging clothes: goes to toilet room, cleans self, arranges clothes without help Transfer: moves in & out of bed and chair without help (may use support object) Continence: controls urination/bowel movements completely by self Feeding: feeds self without help Total Score: 0 Information obtained from: patient Using telephone: independent Traveling: independent Shopping: independent Preparing meals: independent Housework: independent Taking medicine: independent Managing money: independent Review of Systems Const All systems reviewed & are unremarkable except as noted in HPI and below Reports no additional complaints Eyes Reports no additional complaints ENT Reports no additional complaints Card Reports no additional complaints Resp Reports no additional complaints GI Reports no additional complaints Reports no additional complaints Physical Exam Vital Signs: Last Vital Signs Pulse 63 04/25/23 11:35 BP 100/66 04/25/23 11:35 Pulse Ox 98 08/16/23 11:35 Oxygen Delivery Method Room Air 04/25/23 11:35 BMI result Body Mass Index 24.0 Const General: no acute distress HEENT Head: Yes normal to inspection Eyes General: appearance normal, both eyes and all related structures Neck Neck: Yes no lymphadenopathy and Yes supple Resp Effort & Inspection: normal respiratory effort Auscultation: clear to auscultation bilaterally Cardio Rhythm: regular rhythm Heart sounds: S1 normal heart sound present and S2 normal heart sound present GI Inspection: Yes normal to inspection Palpation (GI): Soft to palpation Percussion: Yes normal to percussion Auscultation: normal bowel sounds Extrem General: Yes no clubbing, cyanosis or edema Assessment & Plan Assessment & Plan (1) Weight loss: Code(s): R63.4 - Abnormal weight loss Plan: blood work today. Increasing caloric intake and well-balanced diet discussed with the patient. (2) Vitamin B12 deficiency: Code(s): E53.8 - Deficiency of other specified B group vitamins (3) Annual physical exam: Code(s): Z00.00 - Encounter for general adult medical examination without abnormal findings Plan: Well-balanced and regular physical activity discussed with the patient. He is up-to-date with colonoscopy and follows up with Urology for BP (4) Depression: Code(s): F32.9 - Major depressive disorder, single episode, unspecified Plan: Continue current medications and follow-up with psychiatrist Orders: Orders Vitamin B12 and Folate Today E53.8 - Deficiency of other specified B group vitamins, E55.9 - Vitamin D deficiency, unspecified, E78.5 - Hyperlipidemia, unspecified, Z00.00 - Encounter for general adult medical examination without abnormal findings Comprehensive [place]. Panel Fast Today E53.8 - Deficiency of other specified B group vitamins, E55.9 - Vitamin D deficiency, unspecified, E78.5 - H yperlipidemia, unspecified, Z00.00 - Encounter for general adult medical examination without abnormal findings Lipid Panel Today E53.8 - Deficiency of other specified B group vitamins, E55.9 - Vitamin D deficiency, unspecified, E78.5 - Hyperlipidemia, unspecified, Z00.00 - Encounter for general adult medical examination without abnormal findings TSH reflex Free T4 Today E53.8 - Deficiency of other specified B group vitamins, E55.9 - Vitamin D deficiency, unspecified, E78.5 - Hyperlipidemia, unspecified, Z00.00 - Encounter for general adult medical examination without abnormal findings Vitamin D 25-OH Total Today E53.8 - Deficiency of other specified B group vitamins, E55.9 - Vitamin D deficiency, unspecified, E78.5 - Hyperlipidemia, unspecified, Z00.00 - Encounter for general adult medical examination without abnormal findings Complete Blood Count Auto Diff Today E53.8 - Deficiency of other specified B group vitamins, E55.9 - Vitamin D deficiency, unspecified, E78.5 - Hyperlipidemia, unspecified, Z00.00 - Encounter for general adult medical examination without abnormal findings Erythrocyte Sedimentation Rate Today R63.4 - Abnormal weight loss Coding Level of Care Code Medicare Subsequent (G0439) Diagnoses Weight loss R63.4 Vitamin B12 deficiency E53.8 Annual physical exam Z00.00 Depression F32.9 CPT Codes Advance Care Planning - Time spent: 1-15 minutes, not on file ([id number]) Advance Care Planning Advance Care Planning discussion: Exists, not on file Forms completed: Health Care Proxy Time spent: 1-15 minutes, not on file
== END 2023-04-25 12:40 | disposition home or self-care (01) ==
PROVIDERS: Visit Provider Internal Medicine
DX: Z00.00 Encounter for general adult medical examination without abnormal findings (principal); F32.9 Major depressive disorder, single episode, unspecified; R63.4 Abnormal weight loss; E53.8 Deficiency of other specified B group vitamins
CPT/HCPCS: 1124F; G0439

== ENCOUNTER 2023-04-25 12:30 | Outpatient (REF) | payer MEDICARE, SELFPAY ==
[2023-04-25 16:31] LABS: Alanine Aminotransferase 17 U/L (0-40); Albumin Level 4.4 g/dL (3.5-5.0); Alkaline Phosphatase 64 U/L (39-117); Anion Gap 8 (12-20); Aspartate Amino Transferase 21 U/L (5-37); Bilirubin Total 0.8 mg/dL (0.0-1.0); Blood Urea Nitrogen 13 mg/dL (9-16); Calcium 9.7 mg/dL (8.4-10.2); Carbon Dioxide 29 mmol/L (22-29); Chloride 106 mmol/L (96-108); Cholesterol 117 mg/dL; Estimated Glomerular Filt Rate > 60; Glucose Fasting 101 mg/dL (60-99); HDL Cholesterol 42 mg/dL; LDL Cholesterol Calculated 64 mg/dl; Potassium 4.4 mmol/L (3.3-5.1); Sodium 139 mmol/L (135-145); Total Protein 7.1 g/dL (6.5-8.0); Triglycerides 57 mg/dL
[2023-04-25 16:38] LABS: TSH reflex Free T4 1.18 uIU/mL (0.32-4.0); Vitamin D 25-OH Total 53.9 ng/mL (>30)
[2023-04-25 16:54] LABS: Folate 12.9 ng/mL (> or = 4.0); Vitamin B12 464 pg/mL (200-900)
[2023-04-25 17:05] LABS: Erythrocyte Sedimentation Rate 2 MM/HR (0-15)
== END 2023-04-25 12:31 | disposition home or self-care (01) ==
LOC: HO.HMGCLDS 12:30
PROVIDERS: PCP Internal Medicine; Visit Provider Internal Medicine
DX: Z00.00 Encounter for general adult medical examination without abnormal findings (principal); E55.9 Vitamin D deficiency, unspecified; E78.5 Hyperlipidemia, unspecified; E53.8 Deficiency of other specified B group vitamins; R63.4 Abnormal weight loss; F32.9 Major depressive disorder, single episode, unspecified; R06.09 Other forms of dyspnea
CPT/HCPCS: 36415; 80053; 80061; 82306; 82607; 82746; 84443; 85652

== ENCOUNTER 2023-06-21 10:00 | Outpatient (RCR) | payer MEDICARE, SELFPAY ==
[2023-06-13 08:59] VITALS: BP 142/86; PULSE 80; O2SAT 96
--- NOTE | 2023-06-13 10:31 | MHC.PT.EP ---
[facility] [place] [facility] [place] [facility] [place] [facility] [address] [place] [address] [phone] F: [phone] F: [phone] F: [phone] F: [phone] Physical Therapy Plan of Care Date of Evaluation: 06/13/23 Date of Surgery: Diagnosis: This is a 68 yo male presenting to skilled PT with a script for vertigo. Assessment: This is a 68 yo male presenting to skilled PT with a script for vertigo. Patient reporting that he has had 3 incidents of dizziness since May 12. On his first incident he woke up with the room spinning. He called his brother who is a chiropractor and it was recommended to him that he do the Alejandra. His symptoms were severe, he did the alejandra and he threw up but definitely noticed improvements. Since then he has been doing the alejandra and has not had symptoms except for symptoms upon waking 2 more other times. He has had a little nausea since then. His symptoms are described as woozy, lightheaded, room spinning, decreased balance. Symptoms increase with getting out of bed and rolling in bed. He reports mild fullness and achiness in B ears. Examination shows + oculomotor tests with saccades, (-) VBI B, normal cervical AROM but increased thoracic kyphosis. He was (-) for BPPV with manny-hallpike B and roll test B. Balance was normal except for some increased sway with EC. S/S not consistent with BPPV at this time however we will be rechecking next week. He also had some double vision with oculomotor tests so I may introduce VOR exercises for HEP next session. He may also benefit from balance HEP as well. He would benefit from PT 2x/wk for 4wks to address impairments, implement HEP and optimize functional mobility. Frequency and Duration: The patient will be seen 2x/wk for 4wks Short Term Goals: reassess canals next session, DGI, HEP if needed Director Security Management Goals: I in HEP Negative in all 6 canals for dizziness and nystagmus Return to normal gait pattern without reports fo LOB due to dizziness Treatment Plan: Modalities to reduce pain, spasms and effusion. Manual therapy to restore motion and function. Therapeutic exercise to improve strength and flexibility. Neuromuscular re-education for posture and balance. Therapeutic activities to return to functional activities of daily living. Electronically signed by: Felipa Fry PT Please sign and return to therapist. Thank you for your referral.
--- NOTE | 2023-07-24 11:06 | MHC.PT.DC ---
[facility] [place] [facility] [place] Office [place] Office [address] [place] Gant [address] [phone] F: [phone] F: [phone] F: [phone] F: [phone] Physical Therapy Discharge Report Diagnosis: This is a 68 yo male presenting to skilled PT with a script for vertigo. Date of Surgery: Date of Evaluation: 06/13/23 Date of Discharge: 07/24/23 Treatments to Date: 2 Cancellations to Date: 0 No Shows to Date: 0 Discharge Status: Discharge Summary: 06/21: Patient without any nystagmus in any positions. He demos normal DGI. Due to some continued lightheadedness we talked about importance of posture (tends to hang head forward) and discussed an HEP with VOR/retraining exercises. I educated him to call our office if symptoms return. Chart will be DC'd after 30 days which he was educated on as well. No symptoms or nystagmus noted with reassessment today. Evaulation: This is a 68 yo male presenting to skilled PT with a script for vertigo. Patient reporting that he has had 3 incidents of dizziness since May 12. On his first incident he woke up with the room spinning. He called his brother who is a chiropractor and it was recommended to him that he do the Alejandra. His symptoms were severe, he did the alejandra and he threw up but definitely noticed improvements. Since then he has been doing the alejandra and has not had symptoms except for symptoms upon waking 2 more other times. He has had a little nausea since then. His symptoms are described as woozy, lightheaded, room spinning, decreased balance. Symptoms increase with getting out of bed and rolling in bed. He reports mild fullness and achiness in B ears. Examination shows + oculomotor tests with saccades, (-) VBI B, normal cervical AROM but increased thoracic kyphosis. He was (-) for BPPV with manny-hallpike B and roll test B. Balance was normal except for some increased sway with EC. S/S not consistent with BPPV at this time however we will be rechecking next week. He also had some double vision with oculomotor tests so I may introduce VOR exercises for HEP next session. He may also benefit from balance HEP as well. He would benefit from PT 2x/wk for 4wks to address impairments, implement HEP and optimize functional mobility. Electronically signed by: Please sign and return to therapist. Thank you for your referral.
== END 2023-07-24 11:07 | disposition home or self-care (01) ==
LOC: HO.PTCHIC 10:00
PROVIDERS: PCP Internal Medicine; Visit Provider Internal Medicine
DX: R42 Dizziness and giddiness (principal)
CPT/HCPCS: 95992; 97110; 97112; 97162

== ENCOUNTER 2023-07-18 13:52 | Outpatient (AMB) | payer MEDICARE, SELFPAY ==
--- NOTE | 2023-07-18 14:12 | MHC.PC.OV ---
Vital Signs 07/18/23 14:15 Height 5 ft 8.5 in Weight 155 lb BMI 23.2 BP 122/76 Blood Pressure Location Lt brachial Position Sitting Pulse 80 Pulse Source Pulse Oximeter Pulse Oximetry (%) 98 Oxygen Delivery Method Room Air Intake Visit Reasons: RUQ discomfort Intake Note: Pt is here today for a sick visit. Pt c/o painful rash on the R side of his abdomen and lower back. Allergies Penicillins Allergy (Unknown, Verified 07/18/23 14:19) Hives Medication List - Last Reconciled 07/18/23 by Bethanie Rodgers MD gabapentin 300 mg PO BEDTIME omeprazole 40 mg PO DAILY sertraline 100 mg PO DAILY simvastatin 20 mg PO DAILY tamsulosin 0.4 mg PO DAILY 90 days zolpidem 10 mg PO BEDTIME PRN Tobacco use date assessed: 07/18/23 Fall risk assessment: No Falls in past year Last assessed Fall Risk: 07/18/23 Dental Screening Dental Screen Date: 07/18/23 Did you have a dental visit in the last 12 months?: Yes Did you have a dental problem in the last 6 months where you did not have access to dental care?: No Was dental information given to patient?: Patient has dentist HPI RUQ discomfort HPI Details Pt c/o R lower chest painful rash for few days. Patient denies fever cough chills. [facility], [facility] Medical History Annual physical exam Anxiety BPH (benign prostatic hyperplasia) Chronic male pelvic pain Depression Facet arthropathy, lumbar Fatigue Flu-like symptoms GERD (gastroesophageal reflux disease) Hyperlipidemia Insomnia Sleep apnea Vitamin D deficiency Surgical History H/O colonoscopy History of endoscopy History of rhinoplasty Hx of cholecystectomy Family History Mother COPD (chronic obstructive pulmonary disease) Brain aneurysm Father Carotid stenosis Brother Heart problem Brother No problems noted. Social History Housing: House Patient Tobacco Use Status: Never used Tobacco e-Cigarette/Vaping Use: Never Used Current occupational status: retired Cognitive needs: No Hearing needs: No Vision needs: Yes Questionnaire Thrive Questionnaire Date Thrive assessed: 10/24/22 JERRY-7 AMB Questionnaire JERRY-7 Date JERRY - 7 assessed: 10/24/22 Source: Developed by DrsJose Bailey, Melody Huang, Edu Joyce and colleagues, with an educational meliton from [employer]. Review of Systems Const All systems reviewed & are unremarkable except as noted in HPI and below Reports no additional complaints Eyes Reports no additional complaints ENT Reports no additional complaints Card Reports no additional complaints Resp Reports no additional complaints GI Reports no additional complaints Reports no additional complaints Physical exam (Primary Care) Vital Signs: Last Vital Signs Pulse 80 07/18/23 14:15 BP 122/76 07/18/23 14:15 Pulse Ox 98 07/18/23 14:15 Oxygen Delivery Method Room Air 07/18/23 14:15 BMI result Body Mass Index 23.2 Tobacco/Smoking Status: Tobacco use Status Tobacco use date assessed 07/18/23 07/18/23 14:20 Patient Tobacco Use Status Never used Tobacco 07/18/23 14:20 e-Cigarette/Vaping Use Never Used 07/18/23 14:13 Thrive Assessment: Date of Thrive Assessment Date Thrive assessed 10/24/22 07/18/23 14:13 Const General: no acute distress HENMT Head: Yes normal to inspection Mouth: Normal oral and palatal mucosa present Neck Neck: Yes supple Chest Other: There is erythematous vesicular rash on the right lower chest in dermatomal distribution Assessment and Plan Assessment & Plan (1) Zoster: Code(s): B02.9 - Zoster without complications Plan: Valtrex is prescribed and supportive care discussed with the patient. (2) Hyperlipidemia: Code(s): E78.5 - Hyperlipidemia, unspecified Plan: cont statin (3) Annual physical exam: Code(s): Z00.00 - Encounter for general adult medical examination without abnormal findings Orders: Orders Comprehensive [place]. Panel Fast 3 Months E78.5 - Hyperlipidemia, unspecified, Z00.00 - Encounter for general adult medical examination without abnormal findings Lipid Panel 3 Months E78.5 - Hyperlipidemia, unspecified, Z00.00 - Encounter for general adult medical examination without abnormal findings Complete Blood Count Auto Diff 3 Months E78.5 - Hyperlipidemia, unspecified, Z00.00 - Encounter for general adult medical examination without abnormal findings Medications: New valacyclovir (Valtrex) 1,000 mg PO TID 30 tabs 0RF valacyclovir (Valtrex) 1,000 mg PO TID 30 tabs 0RF Coding Level of Care Code Est Pt Level 3 (34221) Diagnoses Zoster B02.9 Hyperlipidemia E78.5 Annual physical exam Z00.00
[2023-07-18 14:15] VITALS: BP 122/76; PULSE 80; O2SAT 98; BMI 23.2
== END 2023-07-18 15:02 | disposition home or self-care (01) ==
PROVIDERS: PCP Internal Medicine; Visit Provider Internal Medicine
DX: B02.9 Zoster without complications (principal); E78.5 Hyperlipidemia, unspecified; Z00.00 Encounter for general adult medical examination without abnormal findings
CPT/HCPCS: 99213

== ENCOUNTER 2023-10-18 08:26 | Outpatient (REF) | payer MEDICARE, SELFPAY ==
[2023-10-18 11:43] LABS: MANUAL DIFF FLAG NO
[2023-10-18 12:05] LABS: Alanine Aminotransferase 18 U/L (0-40); Albumin Level 4.2 g/dL (3.5-5.0); Alkaline Phosphatase 70 U/L (39-117); Anion Gap 12 (12-20); Aspartate Amino Transferase 24 U/L (5-37); Basophils Absolute Auto 0.1 X10*3/uL (0.0-0.2); Basophils Percent Auto 1.2 % (0-2); Bilirubin Total 0.7 mg/dL (0.0-1.0); Blood Urea Nitrogen 17 mg/dL (9-16); Calcium 9.8 mg/dL (8.4-10.2); Carbon Dioxide 27 mmol/L (22-29); Chloride 105 mmol/L (96-108); Cholesterol 125 mg/dL (<200); Eosinophils Absolute Auto 0.3 X10*3/uL (0.0-0.4); Eosinophils Percent Auto 6.7 % (0-4); Estimated Glomerular Filt Rate > 60; Glucose Fasting 101 mg/dL (60-99); HDL Cholesterol 40 mg/dL (>40); Hematocrit 41.9 % (42.0-52.0); Hemoglobin 14.2 g/dl (14.0-18.0); Imm Gran Abs Auto 0.01 X10*3/uL (0.00-0.03); Imm Gran Pct Auto 0.2 % (0.0-0.4); LDL Cholesterol Calculated 70 mg/dL (<100); Lymphocytes Absolute Auto 1.7 X10*3/uL (1.2-4.9); Lymphocytes Percent Auto 35.4 % (20-40); Mean Corpuscular HGB Conc 33.9 g/dl (31.0-36.0); Mean Corpuscular Hemoglobin 32.3 pg (27.0-33.0); Mean Corpuscular Volume 95.2 fL (80.0-98.0); Monocytes Absolute Auto 0.4 X10*3/uL (0.1-1.2); Monocytes Percent Auto 7.5 % (2-11); Neutrophils Absolute Auto 2.4 x10*3/uL (2.0-8.3); Platelet Count 104 X10*3/uL (160-400); Potassium 4.1 mmol/L (3.3-5.1); Red Cell Distribution Width 13.1 % (11.0-16.0); Sodium 140 mmol/L (135-145); Total Protein 6.9 g/dL (6.5-8.0); Triglycerides 78 mg/dL (<150); White Blood Count 4.9 X10*3/uL (4.8-10.8)
== END 2023-10-18 08:27 | disposition home or self-care (01) ==
LOC: HO.HMGCLDS 08:26
PROVIDERS: PCP Internal Medicine; Visit Provider Internal Medicine
DX: Z00.00 Encounter for general adult medical examination without abnormal findings (principal); E78.5 Hyperlipidemia, unspecified
CPT/HCPCS: 36415; 80053; 80061; 85025

== ENCOUNTER 2023-10-26 10:22 | Outpatient (AMB) | payer MEDICARE, SELFPAY ==
--- NOTE | 2023-10-26 10:33 | A.OFFPC_ITS ---
Vital Signs 10/26/23 10:34 Height 5 ft 8.5 in Weight 155 lb BMI 23.2 BP 118/66 Blood Pressure Location Lt brachial Position Sitting Pulse 64 Pulse Source Pulse Oximeter Pulse Oximetry (%) 98 Oxygen Delivery Method Room Air Intake Visit Reasons: 6 Month follow up Intake Note: Pt is here today for 6 months follow up visit. Allergies Penicillins Allergy (Unknown, Verified 10/26/23 10:36) Hives Medication List - Last Reconciled 10/26/23 by Bethanie Rodgers MD famotidine 40 mg PO BEDTIME gabapentin 300 mg PO BEDTIME sertraline 100 mg PO DAILY simvastatin 20 mg PO DAILY tamsulosin 0.4 mg PO DAILY 90 days valacyclovir (Valtrex) 1,000 mg PO TID Tobacco use date assessed: 10/26/23 Fall risk assessment: No Falls in past year Last assessed Fall Risk: 10/26/23 Dental Screening Dental Screen Date: 10/26/23 Did you have a dental visit in the last 12 months?: Yes Did you have a dental problem in the last 6 months where you did not have access to dental care?: No Was dental information given to patient?: Patient has dentist HPI 6 Month follow up HPI Details Patient presents for the follow-up of hyperlipidemia chronic depression with anxiety BPH, stable on current medications. [facility] Medical History Tremor Flu-like symptoms Annual physical exam Sleep apnea Fatigue Vitamin D deficiency Depression Chronic male pelvic pain Insomnia Anxiety Facet arthropathy, lumbar BPH (benign prostatic hyperplasia) GERD (gastroesophageal reflux disease) Hyperlipidemia Surgical History History of endoscopy H/O colonoscopy Hx of cholecystectomy History of rhinoplasty Family History Mother COPD (chronic obstructive pulmonary disease) Brain aneurysm Father Carotid stenosis Brother Heart problem Brother No problems noted. Social History Housing: House Patient Tobacco Use Status: Never used Tobacco e-Cigarette/Vaping Use: Never Used Current occupational status: retired Cognitive needs: No Hearing needs: No Vision needs: Yes Questionnaire Thrive Questionnaire Date Thrive assessed: 02/14/23 AUDIT C Alcohol Use Questionnaire (AUDIT-C) 1. How often do you have a drink containing alcohol?: Monthly or less 2. How many drinks containing alcohol do you have on a typical day when you are drinking?: 1 or 2 3. How often do you have six or more drinks on one occasion?: Never Total Score: 1 JERRY-7 AMB Questionnaire JERRY-7 Date JERRY - 7 assessed: 10/24/22 Feeling nervous, anxious, or on edge: 0 = Not at all Not being able to stop or control worryin = Not at all Worrying too much about different things: 0 = Not at all Trouble relaxin = Not at all Being so restless that it is hard to sit still: 0 = Not at all Becoming easily annoyed or irritable: 0 = Not at all Feeling afraid as if something awful might happen: 0 = Not at all Total JERRY-7 score (0-4 normal; 5-9 mild; 10-14 moderate; 15-21 severe): 0 Source: Developed by Drs. Salvatore Bailey, Melody Huang, Edu Joyce and colleagues, with an educational meliton from [employer]. Review of Systems Const All systems reviewed & are unremarkable except as noted in HPI and below Reports no additional complaints Eyes Reports no additional complaints ENT Reports no additional complaints Card Reports no additional complaints Resp Reports no additional complaints GI Reports no additional complaints Reports no additional complaints Physical exam (Primary Care) Vital Signs: Last Vital Signs Pulse 64 10/26/23 10:34 BP 118/66 10/26/23 10:34 Pulse Ox 98 10/26/23 10:34 Oxygen Delivery Method Room Air 10/26/23 10:34 BMI result Body Mass Index 23.2 Tobacco/Smoking Status: Tobacco use Status Tobacco use date assessed 10/26/23 10/26/23 10:38 Patient Tobacco Use Status Never used Tobacco 10/26/23 10:38 e-Cigarette/Vaping Use Never Used 10/26/23 10:38 Thrive Assessment: Date of Thrive Assessment Date Thrive assessed 10/24/22 10/26/23 10:38 Const General: no acute distress HENMT Ears: hearing grossly normal bilaterally Mouth: Normal oral and palatal mucosa present Eyes General: appearance normal, both eyes and all related structures Neck Neck: Yes no lymphadenopathy and Yes supple Resp Effort & Inspection: normal respiratory effort Auscultation: clear to auscultation bilaterally Cardio Rhythm: regular rhythm Heart sounds: S1 normal heart sound present and S2 normal heart sound present GI Inspection: Yes normal to inspection Palpation (GI): Soft to palpation Percussion: Yes normal to percussion Auscultation: normal bowel sounds Assessment and Plan Assessment & Plan (1) Thrombocytopenia: Code(s): D69.6 - Thrombocytopenia, unspecified Plan: Will monitor CBC obtain abdominal ultrasound to evaluate for splenomegaly (2) Hyperlipidemia: Code(s): E78.5 - Hyperlipidemia, unspecified Plan: Continue statin (3) BPH (benign prostatic hyperplasia): Comment: f/u by Dr. Islas Code(s): N40.0 - Benign prostatic hyperplasia without lower urinary tract symptoms Plan: Continue tamsulosin (4) Depression: Code(s): F32.9 - Major depressive disorder, single episode, unspecified Plan: Continue sertraline and gabapentin and follow-up with Psychiatry Orders: Orders US abdomen limited 6 Months D69.6 - Thrombocytopenia, unspecified, E53.8 - Deficiency of other specified B group vitamins, E78.5 - Hyperlipidemia, unspecified Immunofixation Pnl, Serum 6 Months D69.6 - Thrombocytopenia, unspecified, E53.8 - Deficiency of other specified B group vitamins, E78.5 - Hyperlipidemia, unspecified Complete Blood Count Man Dif 6 Months D69.6 - Thrombocytopenia, unspecified, E53.8 - Deficiency of other specified B group vitamins, E78.5 - Hyperlipidemia, unspecified Vitamin B12 and Folate 6 Months D69.6 - Thrombocytopenia, unspecified, E53.8 - Deficiency of other specified B group vitamins, E78.5 - Hyperlipidemia, unspecified Comprehensive Met. Panel 6 Months D69.6 - Thrombocytopenia, unspecified, E53.8 - Deficiency of other specified B group vitamins, E78.5 - Hyperlipidemia, unspecified PSA,Total (Free>4and<10) 6 Months D69.6 - Thrombocytopenia, unspecified, E53.8 - Deficiency of other specified B group vitamins, E78.5 - Hyperlipidemia, unspeci fied, N40.0 - Benign prostatic hyperplasia without lower urinary tract symptoms Medications: New famotidine 40 mg PO BEDTIME 90 tabs 3RF Refilled simvastatin 20 mg PO DAILY 90 tabs 3RF tamsulosin 0.4 mg PO DAILY 90 days 90 caps 3RF Discontinued omeprazole Discontinued Reason: Doctor's Order 40 mg PO DAILY 90 caps 3RF valacyclovir (Valtrex) Discontinued Reason: Doctor's Order 1,000 mg PO TID 30 tabs 0RF Coding Level of Care Code Est Pt Level 4 (40003) Diagnoses Thrombocytopenia D69.6 Hyperlipidemia E78.5 BPH (benign prostatic hyperplasia) N40.0 Depression F32.9
[2023-10-26 10:34] VITALS: BP 118/66; PULSE 64; O2SAT 98; BMI 23.2
== END 2023-10-26 11:25 | disposition home or self-care (01) ==
PROVIDERS: PCP Internal Medicine; Visit Provider Internal Medicine
DX: D69.6 Thrombocytopenia, unspecified (principal); E78.5 Hyperlipidemia, unspecified; N40.0 Benign prostatic hyperplasia without lower urinary tract symptoms; F33.9 Major depressive disorder, recurrent, unspecified
CPT/HCPCS: 99214

== ENCOUNTER 2023-11-14 11:23 | Outpatient (REF) | payer MEDICARE, SELFPAY ==
--- NOTE | ~2023-11-14 | US_ITS ---
EXAMINATION: US ABDOMEN LIMITED CLINICAL INFORMATION: Thrombocytopenia, unspecified. Evaluate for splenomegaly. COMPARISON: Ultrasound kidneys and bladder 10/01/2017. TECHNIQUE: Real-time imaging of the spleen. FINDINGS: SPLEEN: Normal. The spleen measures 10.8 cm in maximum dimension. US/US abdomen limited IMPRESSION: Unremarkable examination, without splenomegaly noted.
== END 2023-11-14 11:24 | disposition home or self-care (01) ==
LOC: HO.HMGCX 11:23
PROVIDERS: PCP Internal Medicine; Visit Provider Internal Medicine
DX: D69.6 Thrombocytopenia, unspecified (principal); E53.8 Deficiency of other specified B group vitamins; E78.5 Hyperlipidemia, unspecified
CPT/HCPCS: 76705

== ENCOUNTER → 2024-01-08 15:00 | Outpatient (BNV) | payer MEDICARE, SELFPAY | PROVIDERS: PCP Internal Medicine; Referring Provider Internal Medicine; Visit Provider Internal Medicine | DX: D69.6 Thrombocytopenia, unspecified (principal) | CPT/HCPCS: 99204; 99213 ==

== ENCOUNTER 2024-01-28 13:23 | Outpatient (AMB) | payer MEDICARE, SELFPAY ==
[2024-01-28 14:27] VITALS: BP 126/78; PULSE 77; TEMP 36.5; O2SAT 99; BMI 23.4
--- NOTE | 2024-01-28 14:27 | MHC.OFFWIV ---
Intake Vital Signs 01/28/24 14:27 Height 5 ft 9 in Weight 158 lb 4 oz BMI 23.4 BP 126/78 Blood Pressure Location Rt brachial Position Sitting Pulse 77 Pulse Source Pulse Oximeter Temp 97.7 F Temp Source Oral Pulse Oximetry (%) 99 Oxygen Delivery Method Room Air Intake Visit Reasons: ep/ nose bleed three days Intake Note: Pt is here today for nose bleed been ongoing for 3 days. Patient Tobacco Use Status: Never used Tobacco Allergies Penicillins Allergy (Unknown, Verified 01/28/24 15:18) Hives Medication List - Last Reconciled 01/28/24 by Octavio Irvin MD famotidine 40 mg PO BEDTIME gabapentin 300 mg PO BEDTIME omeprazole 40 mg PO DAILY sertraline 100 mg PO DAILY simvastatin 20 mg PO DAILY tamsulosin 0.4 mg PO DAILY 90 days Do you need a note to return to daycare/school/sports/work: No HPI ep/ nose bleed three days HPI Details 68-year-old male presents to the office for a sick visit. Patient is reporting bleeding from the nose for the past 3 days. He admits that he has been picking on the left nostril excessively. Once the bleeding starts, he has a difficult time stopping the bleeding. Currently the bleeding is stopped. [facility] Medical History Tremor Flu-like symptoms Annual physical exam Sleep apnea Fatigue Vitamin D deficiency Depression Chronic male pelvic pain Insomnia Anxiety Facet arthropathy, lumbar BPH (benign prostatic hyperplasia) GERD (gastroesophageal reflux disease) Hyperlipidemia Surgical History History of endoscopy H/O colonoscopy Hx of cholecystectomy History of rhinoplasty Family History Mother COPD (chronic obstructive pulmonary disease) Brain aneurysm Father Carotid stenosis Brother Heart problem Brother No problems noted. Social History (Updated 01/08/24 @ 14:55 by Alonso Barth) Household Members: None Housing: House Patient Tobacco Use Status: Never used Tobacco e-Cigarette/Vaping Use: Never Used service: No Current occupational status: retired Cognitive needs: No Hearing needs: No Vision needs: Yes Physical Exam Vital Signs: Last Vital Signs Temp 97.7 F 01/28/24 14:27 Pulse 77 01/28/24 14:27 BP 126/78 01/28/24 14:27 Pulse Ox 99 01/28/24 14:27 Oxygen Delivery Method Room Air 01/28/24 14:27 BMI result Body Mass Index 23.4 HEENT Other: Left nostril: Dried blood in the anterior. Scabbed area on the wall of the nostril. Assessment & Plan Assessment & Plan (1) Epistaxis: Code(s): R04.0 - Epistaxis Plan: Patient has underlying thrombocytopenia. Flonase ordered. Patient was advised to not warehouse order picker on his nose. Once all the bleeding stops and the dried blood is resolved, he should have an evaluation with his primary care provider. Coding Level of Care Code Est Pt Level 3 (64010) Diagnoses Epistaxis R04.0
== END 2024-01-28 16:06 | disposition home or self-care (01) ==
PROVIDERS: PCP Internal Medicine; Visit Provider Internal Medicine
DX: R04.0 Epistaxis (principal)
CPT/HCPCS: 99213

== ENCOUNTER 2024-04-28 07:49 | Outpatient (REF) | payer MEDICARE, SELFPAY ==
[2024-04-28 10:40] LABS: Baso%MD 0.8 %; Eos%MD 4.9 %; Hematocrit 43.1 % (42.0-52.0); Hemoglobin 14.5 g/dl (14.0-18.0); IG%MD 0.2 %; Lymph%MD 28.9 %; Mean Corpuscular HGB Conc 33.6 g/dl (31.0-36.0); Mean Corpuscular Hemoglobin 32.4 pg (27.0-33.0); Mean Corpuscular Volume 96.4 fL (80.0-98.0); Mean Platelet Volume 12.2 fL (9.4-12.4); Neut%MD 58.2 %; Platelet Count 105 X10*3/uL (160-400); Red Blood Count 4.47 X10*6/uL (4.60-5.80); Red Cell Distribution Width 12.9 % (11.0-16.0); White Blood Count 4.7 X10*3/uL (4.8-10.8)
[2024-04-28 11:06] LABS: Alanine Aminotransferase 19 U/L (0-40); Albumin Level 4.6 g/dL (3.5-5.0); Alkaline Phosphatase 62 U/L (39-117); Anion Gap 10 (12-20); Aspartate Amino Transferase 25 U/L (5-37); Bilirubin Total 0.8 mg/dL (0.0-1.0); Blood Urea Nitrogen 18 mg/dL (9-16); Calcium 10.2 mg/dL (8.4-10.2); Carbon Dioxide 29 mmol/L (22-29); Chloride 107 mmol/L (96-108); Estimated Glomerular Filt Rate > 60; Glucose Random 112 mg/dL (60-115); Potassium 4.3 mmol/L (3.3-5.1); Sodium 142 mmol/L (135-145); Total Protein 7.4 g/dL (6.5-8.0)
[2024-04-28 11:26] LABS: PSA,Total (Free>4and<10) 2.24 ng/mL (0.00-4.00)
[2024-04-28 11:32] LABS: Eosinophils Absolute Manual 0.1 X10*3/uL (0.0-0.4); Eosinophils Percent Manual 3 % (0-4); Lymphocytes Absolute Manual 1.1 X10*3/uL (1.2-4.9); Lymphocytes Percent Manual 23 % (20-40); Monocytes Absolute Manual 0.4 X10*3/uL (0.1-1.2); Monocytes Percent Manual 9 % (2-11); Neutrophils Percent Manual 65 % (45-73)
[2024-04-28 11:33] LABS: Band Neutrophils Percent 0 % (3-5); Neutrophils Absolute Manual 3.1 X10*3/uL (2.0-8.3)
[2024-04-28 11:35] LABS: Platelet Estimate DECREASED (NORMAL); Platelet Morphology Comment NORMAL; RBC Morphology NORMAL
[2024-04-28 11:39] LABS: Vitamin B12 712 pg/mL (200-900)
[2024-05-01 09:23] LABS: IgA 359 mg/dL (70-320); IgG 877 mg/dL (600-1540); IgM 116 mg/dL (50-300)
== END 2024-04-28 07:50 | disposition home or self-care (01) ==
LOC: HO.HMGCLDS 07:49
PROVIDERS: PCP Internal Medicine; Visit Provider Internal Medicine
DX: D69.6 Thrombocytopenia, unspecified (principal); E53.8 Deficiency of other specified B group vitamins; E78.5 Hyperlipidemia, unspecified; N40.0 Benign prostatic hyperplasia without lower urinary tract symptoms; Z12.5 Encounter for screening for malignant neoplasm of prostate
CPT/HCPCS: 36415; 80053; 82607; 82746; 82784; 84153; 85007; 85027; 86334

== ENCOUNTER 2024-04-30 08:56 | Outpatient (AMB) | payer MEDICARE, SELFPAY ==
[2024-04-30 08:58] VITALS: BP 110/72; PULSE 77; O2SAT 96; BMI 23.0
--- NOTE | 2024-04-30 08:58 | A.OFFVIS_ITS ---
Intake Vital Signs 04/30/24 08:58 Height 5 ft 8.4 in Weight 153 lb BMI 23.0 BP 110/72 Blood Pressure Location Lt brachial Position Sitting Pulse 77 Pulse Source Pulse Oximeter Pulse Oximetry (%) 96 Oxygen Delivery Method Room Air Intake Visit Reasons: V G0439 Allergies Penicillins Allergy (Unknown, Verified 04/30/24 08:58) Hives Medication List - Last Reconciled 04/30/24 by Bethanie Rodgers MD fluticasone propionate 50 mcg/actuation (Flonase Allergy Relief) 1 spray intranasal DAILY gabapentin 300 mg PO BEDTIME omeprazole 40 mg PO DAILY ropinirole 0.25 mg PO DAILY sertraline 100 mg PO DAILY simvastatin 20 mg PO DAILY tamsulosin 0.4 mg PO DAILY 90 days HPI V G0439 HPI Details Initiated the conversation about Advanced Directives. Advanced Directives help? patients prepare for current and future decisions about their medical treatment? and place of care. Discussed with patient that it is a process where a patients? current condition and prognosis are reviewed, their wishes for information? regarding their illness are elicited, and likely medical dilemmas are presented? and options discussed. The form can be amended as needed, reviewed yearly and? make changes as needed IPPE/AWV ? year old presents? for her ? Annual? Wellness Visit, initial visit.? Medical / Social History Reviewed? Past Medical History ?Yes? . ? [place]? of Care / Care Team list updated ?Yes . ? Surgical/Hospitalization? History ?Yes . ? Current Medications? (including OTC and supplements) ?Yes . ? Family History ?Yes? . ? Tobacco? Control form ?Yes . ? AUDIT-C (Alcohol use) form? ?Yes . ? Illicit drug use in Social? History ?Yes . ? Current diagnosis of? depression? ?No ? Appropriate PHQ2/PHQ9? completed ?Yes . ? Data entered by ?Medical? Job Boss and reviewed by provider ? Fall Risk ? Fall? History? Have you had any falls with? injury in the past year? ?No . ? Have you had two or more? falls in the past year? ?No . ? Fall Risk Assessment: ?No? falls in the past year . ? HRA filled out by? the patient, reviewed by Provider and scanned. ? IPPE/AWV ? Balance? [place]? ?Yes . ? Tandem? walk ?Yes . ? Walk and? Turn ?Yes . ? Rise from? sit to stand ?Yes . ?Vision? Corrective? lens ?Yes ? Vision? screen ? Up-to-date, has an appointment [] for vision? screening and glaucoma screening ?Hearing? Whisper? test ?pass .? Initiated the conversation about Advanced Directives. Advanced Directives help? patients prepare for current and future decisions about their medical treatment? and place of care. Discussed with patient that it is a process where a patients? current condition and prognosis are reviewed, their wishes for information? regarding their illness are elicited, and likely medical dilemmas are presented? and options discussed. The form can be amended as needed, reviewed yearly and? make changes as needed Written? Plan?Completed. See Patient? Documents. [facility] Medical History Tremor Flu-like symptoms Annual physical exam Sleep apnea Fatigue Vitamin D deficiency Depression Chronic male pelvic pain Insomnia Anxiety Facet arthropathy, lumbar BPH (benign prostatic hyperplasia) GERD (gastroesophageal reflux disease) Hyperlipidemia Surgical History History of endoscopy H/O colonoscopy Hx of cholecystectomy History of rhinoplasty Family History Mother COPD (chronic obstructive pulmonary disease) Brain aneurysm Father Carotid stenosis Brother Heart problem Brother No problems noted. Social History Household Members: None Housing: House Patient Tobacco Use Status: Never used Tobacco e-Cigarette/Vaping Use: Never Used service: No Current occupational status: retired Cognitive needs: No Hearing needs: No Vision needs: Yes Questionnaire Medicare Wellness Checkup [age] 65-68 What gender do you identify with?: male During the past 4 weeks, how much have you been bothered by emotional problems such as feeling anxious, depressed, irritable, sad or downhearted, and blue?: not at all During the past 4 weeks, has your physical & emotional health limited your social activities with family, friends, neighbors, or groups?: not at all During the past 4 weeks, how much bodily pain have you generally had?: no pain During the past 4 weeks, was someone available to help you if you needed & wanted help?: yes, as much as I wanted During the past 4 weeks, what was the hardest physical activity you could do for at least 2 minutes?: heavy Can you get to places out of walking distance without help? (For eg., can you travel alone on buses, taxis or drive your car?): Yes Can you go shopping for groceries or clothes without someone's help?: Yes Can you prepare your own meals?: Yes Can you do your housework without help?: Yes Because of any health problems, do you need the help of another person with your personal care needs such as eating, bathing, dressing or getting around the samuel se?: No Can you handle your own money without help?: Yes During the past 4 weeks, how would you rate your health in general?: good During the past 4 weeks how have things been going for you?: pretty well Are you having difficulties driving your car?: no Do you always fasten your seat belt when you are in a car?: yes, usually During past 4 weeks, have you been bothered by the following: never: Sexual problems? and Problems using the telephone? and seldom: Falling or dizzy when standing up, Trouble eating well?, Teeth or denture problems? and Tiredness or fatigue? Have you fallen 2 or more times in the past year?: No Are you afraid of falling?: No Are you a smoker?: no During the past 4 weeks, how many drinks of wine, beer, or other alcoholic beverages did you have?: 1 drink or less per week Do you exercise for about 20 minutes 3 or more times a week?: yes, some of the time Have you been given information to help with the following?: no: Hazards in your house that might hurt you? and no: Keeping track of your medications? How often do you have trouble taking medicines the way you have been told to take them?: I always take medicine as prescribed How confident are you that you can control & manage most of your health problems?: very confident What is your race?: White Activity of Daily Living Bathing - sponge bath, tub bath or shower: receives no assistance (gets in/out by self, if usual bathing means Dressing - getting clothes from closets & drawers, including inner/outer garments & fasteners.: gets clothes & gets completely dressed without help Toileting - going to the 'toilet room' for urine/bowel elimination & cleaning self/arranging clothes: goes to toilet room, cleans self, arranges clothes without help Transfer: moves in & out of bed and chair without help (may use support object) Continence: controls urination/bowel movements completely by self Feeding: feeds self without help Total Score: 0 Information obtained from: patient Using telephone: independent Traveling: independent Shopping: independent Preparing meals: independent Housework: independent Taking medicine: independent Managing money: independent PHQ-9 Over the last 2 weeks, how often have you been bothered by any of the following problems? 1. Little interest or pleasure in doing things: not at all 2. Feeling down, depressed, or hopeless: not at all 3. Trouble falling or staying asleep, or sleeping too much: not at all 4. Feeling tired or having little energy: not at all 5. Poor appetite or overeating: not at all 6. Feeling bad about yourself - or that you are a failure or have let yourself or your family down: not at all 7. Trouble concentrating on things, such as reading the newspaper or watching television: not at all 8. Moving or speaking so slowly that other people could have noticed. Or the opposite - being so fidgety or restless that you have been moving around a lot more than usual: not at all 9. Thoughts that you would be better off or of hurting yourself in some way: not at all Total score: 0 Depression Screening Interpretation: Negative Depression Screening Done: Yes 88829 - PHQ-9 Billing: Yes Source: Developed by Drs. Salvatore Bailey, Melody Huang, Edu Joyce and colleagues, with an educational meliton from [employer]. Review of Systems Const All systems reviewed & are unremarkable except as noted in HPI and below Eyes Reports no additional complaints ENT Reports no additional complaints Card Reports no additional complaints Resp Reports no additional complaints GI Reports no additional complaints Reports no additional complaints Musc Reports no additional complaints Physical Exam Vital Signs: Last Vital Signs Pulse 77 04/30/24 08:58 BP 110/72 04/30/24 08:58 Pulse Ox 96 04/30/24 08:58 Oxygen Delivery Method Room Air 04/30/24 08:58 BMI result Body Mass Index 23.0 Const General: no acute distress HEENT Head: Yes normal to inspection Ears: hearing grossly normal bilaterally Neck Neck: Yes supple Resp Effort & Inspection: normal respiratory effort Auscultation: clear to auscultation bilaterally Cardio Rhythm: regular rhythm Heart sounds: S1 normal heart sound present and S2 normal heart sound present GI Inspection: Yes normal to inspection Palpation (GI): Soft to palpation Percussion: Yes normal to percussion Auscultation: normal bowel sounds Extrem General: Yes no clubbing, cyanosis or edema Assessment & Plan Assessment & Plan (1) Hyperlipidemia: Code(s): E78.5 - Hyperlipidemia, unspecified Plan: Continue simvastatin (2) Annual physical exam: Code(s): Z00.00 - Encounter for general adult medical examination without abnormal findings Plan: well balanced diet, regular exercise, (3) Thrombocytopenia: Code(s): D69.6 - Thrombocytopenia, unspecified Plan: monitor CBC, negative hematological w/u Orders: Orders Complete Blood Count Auto Diff 1 Year D69.6 - Thrombocytopenia, unspecified, D70.9 - Neutropenia, unspecified, E78.5 - Hyperlipidemia, unspecified, Z00.00 - Encounter for general adult medical examination without abnormal findings Lipid Panel 1 Year D69.6 - Thrombocytopenia, unspecified, D70.9 - Neutropenia, unspecified, E78.5 - Hyperlipidemia, unspecified, Z00.00 - Encounter for general adult medical examination without abnormal findings TSH reflex Free T4 1 Year D69.6 - Thrombocytopenia, unspecified, D70.9 - Neutropenia, unspecified, E78.5 - Hyperlipidemia, unspecified, Z00.00 - Encoun ter for general adult medical examination without abnormal findings Comprehensive [place]. Panel Fast 1 Year D69.6 - Thrombocytopenia, unspecified, D70.9 - Neutropenia, unspecified, E78.5 - Hyperlipidemia, unspecified, Z00.00 - Encounter for general adult medical examination without abnormal findings UA w Microscopic 1 Year D69.6 - Thrombocytopenia, unspecified, D70.9 - Neutropenia, unspecified, E78.5 - Hyperlipidemia, unspecified, Z00.00 - Encounter for general adult medical examination without abnormal findings Medications: Discontinued famotidine Discontinued Reason: Doctor's Order 40 mg PO BEDTIME 90 tabs 3RF Quality Reporting (2019) Depression/Bipolar (159/160/161/177) PHQ-9: Total score: 0 Coding Level of Care Code Medicare Subsequent (G0439) Diagnoses Hyperlipidemia E78.5 Annual physical exam Z00.00 Thrombocytopenia D69.6 CPT Codes Advance Care Planning - Advance Care Planning discussion: On file, no changes ([id number]) Advance Care Planning - Time spent: 1-15 minutes, on File ([id number]) Advance Care Planning Advance Care Planning discussion: On file, no changes Forms completed: Health Care Proxy Time spent: 1-15 minutes, on File
== END 2024-04-30 09:41 | disposition home or self-care (01) ==
PROVIDERS: PCP Internal Medicine; Visit Provider Internal Medicine
DX: Z00.00 Encounter for general adult medical examination without abnormal findings (principal); E78.5 Hyperlipidemia, unspecified; D69.6 Thrombocytopenia, unspecified
CPT/HCPCS: 1123F; G0439

== ENCOUNTER 2025-05-13 13:13 | Outpatient (AMB) | payer MEDICARE, SELFPAY ==
[2025-05-13 13:14] VITALS: BP 120/74; PULSE 63; RESP 18; TEMP 36.9; O2SAT 98; BMI 21.1
--- NOTE | 2025-05-13 13:14 | A.OFFVIS_ITS ---
Intake Vital Signs 05/13/25 13:14 Height 5 ft 9 in Weight 143 lb BMI 21.1 BP 120/74 Blood Pressure Location Lt brachial Position Sitting Respiration 18 Pulse 63 Pulse Source Pulse Oximeter Temp 98.5 F Temp Source Oral Pulse Oximetry (%) 98 Oxygen Delivery Method Room Air Intake Visit Reasons: Medicare wellness Intake Note: Pt is here today for AWV. Allergies Penicillins Allergy (Unknown, Verified 05/13/25 13:17) Hives Medication List - Last Reconciled 05/13/25 by Bethanie Rodgers MD gabapentin 300 mg PO BEDTIME omeprazole 40 mg PO DAILY ropinirole 0.25 mg PO DAILY sertraline 100 mg PO DAILY simvastatin 20 mg PO DAILY tamsulosin 0.4 mg PO DAILY 90 days HPI Medicare wellness HPI Details Initiated the conversation about Advanced Directives. Advanced Directives help? patients prepare for current and future decisions about their medical treatment? and place of care. Discussed with patient that it is a process where a patients? current condition and prognosis are reviewed, their wishes for information? regarding their illness are elicited, and likely medical dilemmas are presented? and options discussed. The form can be amended as needed, reviewed yearly and? make changes as needed IPPE/AWV ? year old presents? for her ? Annual? Wellness Visit, initial visit.? Medical / Social History Reviewed? Past Medical History ?Yes? . ? [place]? of Care / Care Team list updated ?Yes . ? Surgical/Hospitalization? History ?Yes . ? Current Medications? (including OTC and supplements) ?Yes . ? Family History ?Yes? . ? Tobacco? Control form ?Yes . ? AUDIT-C (Alcohol use) form? ?Yes . ? Illicit drug use in Social? History ?Yes . ? Current diagnosis of? depression? ?No ? Appropriate PHQ2/PHQ9? completed ?Yes . ? Data entered by ?Medical? Workplace Rehabilitation Officer and reviewed by provider ? Fall Risk ? Fall? History? Have you had any falls with? injury in the past year? ?No . ? Have you had two or more? falls in the past year? ?No . ? Fall Risk Assessment: ?No? falls in the past year . ? HRA filled out by? the patient, reviewed by Provider and scanned. ? IPPE/AWV ? Balance? [place]? ?Yes . ? Tandem? walk ?Yes . ? Walk and? Turn ?Yes . ? Rise from? sit to stand ?Yes . ?Vision? Corrective? lens ?Yes ? Vision? screen ? Up-to-date, has an appointment [] for vision? screening and glaucoma screening ?Hearing? Whisper? test ?pass .? Initiated the conversation about Advanced Directives. Advanced Directives help? patients prepare for current and future decisions about their medical treatment? and place of care. Discussed with patient that it is a process where a patients? current condition and prognosis are reviewed, their wishes for information? regarding their illness are elicited, and likely medical dilemmas are presented? and options discussed. The form can be amended as needed, reviewed yearly and? make changes as needed Written? Plan?Completed. See Patient? Documents. [facility] Medical History (Updated 05/13/25 @ 19:42 by Bethanie Rodgers MD) Tremor Flu-like symptoms Annual physical exam Sleep apnea Fatigue Vitamin D deficiency Depression Chronic male pelvic pain Insomnia Anxiety Facet arthropathy, lumbar BPH (benign prostatic hyperplasia) GERD (gastroesophageal reflux disease) Hyperlipidemia Surgical History (Updated 05/13/25 @ 13:47 by Bethanie Rodgers MD) History of endoscopy H/O colonoscopy Hx of cholecystectomy History of rhinoplasty Family History Mother COPD (chronic obstructive pulmonary disease) Brain aneurysm Father Carotid stenosis Brother Heart problem Brother No problems noted. Social History Household Members: None Housing: House Patient Tobacco Use Status: Never used Tobacco e-Cigarette/Vaping Use: Never Used service: No Current occupational status: retired Cognitive needs: No Hearing needs: No Vision needs: Yes Questionnaire Medicare Wellness Checkup [age] What gender do you identify with?: male During the past 4 weeks, how much have you been bothered by emotional problems such as feeling anxious, depressed, irritable, sad or downhearted, and blue?: not at all During the past 4 weeks, has your physical & emotional health limited your social activities with family, friends, neighbors, or groups?: not at all During the past 4 weeks, how much bodily pain have you generally had?: no pain During the past 4 weeks, was someone available to help you if you needed & wanted help?: yes, as much as I wanted During the past 4 weeks, what was the hardest physical activity you could do for at least 2 minutes?: heavy Can you get to places out of walking distance without help? (For eg., can you travel alone on buses, taxis or drive your car?): Yes Can you go shopping for groceries or clothes without someone's help?: Yes Can you prepare your own meals?: Yes Can you do your housework without help?: Yes Because of any health problems, do you need the help of another person with your personal care needs such as eating, bathing, dressing or getting around the house?: No Can you handle your own money without help?: Yes During the past 4 weeks, how would you rate your health in general?: good During the past 4 weeks how have things been going for you?: pretty well Are you having difficulties driving your car?: no Do you always fasten your seat belt when you are in a car?: yes, usually During past 4 weeks, have you been bothered by the following: never: Sexual problems? and Problems using the telephone? and seldom: Falling or dizzy when standing up, Trouble eating well?, Teeth or denture problems? and Tiredness or fatigue? Have you fallen 2 or more times in the past year?: No Are you afraid of falling?: No Are you a smoker?: no During the past 4 weeks, how many drinks of wine, beer, or other alcoholic beverages did you have?: 1 drink or less per week Do you exercise for about 20 minutes 3 or more times a week?: yes, some of the time Have you been given information to help with the following?: no: Hazards in your house that might hurt you? and no: Keeping track of your medications? How often do you have trouble taking medicines the way you have been told to take them?: I always take medicine as prescribed How confident are you that you can control & manage most of your health problems?: very confident What is your race?: White Mini Mental State Exam (MMSE) Orientation What is the (year) (season) (date) (day) (month)?: year, season, date, day and month Where are we (state) (county) (town or city) (hospital) (floor)?: state, county, town or city, hospital/clinic and floor Registration Name of 3 unrelated objects clearly and slowly, then ask patient to repeat all 3 of them. (1st repeat determines score. Make sure they can repeat all three): object 1, object 2 and object 3 Attention & Calculation (CHOOSE ONE) Spell WORLD backwards (DLROW): 5 letters Recall Ask patient to repeat the 3 items from question #3.: object 1, object 2 and object 3 Language Show patient a wristwatch & ask what it is. Repeat for pencil.: watch and pencil Ask the patient to repeat the phrase 'No ifs, ands, or buts' after you.: correct Ask the patient to 'take a piece of paper with their right hand' 'fold paper in half' 'place paper on floor': take paper in right hand, fold paper in half and place paper on floor Print the sentence 'CLOSE YOUR EYES' on a piece. If patient actually closes eyes then score.: followed written direction Give patient a blank piece of paper & ask to write a sentence. Score if it contains a noun & verb.: sentence contains subject and verb Score Score: 29 Activity of Daily Living Bathing - sponge bath, tub bath or shower: receives no assistance (gets in/out by self, if usual bathing means Dressing - getting clothes from closets & drawers, including inner/outer garments & fasteners.: gets clothes & gets completely dressed without help Toileting - going to the 'toilet room' for urine/bowel elimination & cleaning self/arranging clothes: goes to toilet room, cleans self, arranges clothes witho ut help Transfer: moves in & out of bed and chair without help (may use support object) Continence: controls urination/bowel movements completely by self Feeding: feeds self without help Total Score: 0 Information obtained from: patient Using telephone: independent Traveling: independent Shopping: independent Preparing meals: independent Housework: independent Taking medicine: independent Managing money: independent PHQ-9 Over the last 2 weeks, how often have you been bothered by any of the following problems? 1. Little interest or pleasure in doing things: not at all 2. Feeling down, depressed, or hopeless: not at all 3. Trouble falling or staying asleep, or sleeping too much: not at all 4. Feeling tired or having little energy: several days 5. Poor appetite or overeating: not at all 6. Feeling bad about yourself - or that you are a failure or have let yourself or your family down: not at all 7. Trouble concentrating on things, such as reading the newspaper or watching television: not at all 8. Moving or speaking so slowly that other people could have noticed. Or the opposite - being so fidgety or restless that you have been moving around a lot more than usual: not at all 9. Thoughts that you would be better off or of hurting yourself in some way: not at all Total score: 1 Depression Screening Interpretation: Negative Depression Screening Done: Yes 69279 - PHQ-9 Billing: Yes Source: Developed by Drs. Salvatore Bailey, Melody Huang, Edu Joyce and colleagues, with an educational meliton from [employer]. Review of Systems Const All systems reviewed & are unremarkable except as noted in HPI and below Eyes Reports no additional complaints ENT Reports no additional complaints Card Reports no additional complaints Resp Reports no additional complaints GI Reports no additional complaints Musc Reports no additional complaints Physical Exam Vital Signs: Last Vital Signs Temp 98.5 F 05/13/25 13:14 Pulse 63 05/13/25 13:14 Resp 18 05/13/25 13:14 BP 120/74 05/13/25 13:14 Pulse Ox 98 05/13/25 13:14 Oxygen Delivery Method Room Air 05/13/25 13:14 BMI result Body Mass Index 21.1 Const General: no acute distress HEENT Head: Yes normal to inspection Ears: TM's normal bilaterally Eyes General: appearance normal, both eyes and all related structures Neck Neck: Yes no lymphadenopathy and Yes supple Resp Effort & Inspection: normal respiratory effort Auscultation: clear to auscultation bilaterally Cardio Rhythm: regular rhythm Heart sounds: S1 normal heart sound present and S2 normal heart sound present GI Inspection: Yes normal to inspection Palpation (GI): Soft to palpation Percussion: Yes normal to percussion Auscultation: normal bowel sounds Extrem General: Yes no clubbing, cyanosis or edema Assessment & Plan Assessment & Plan (1) Vitamin D deficiency: Code(s): E55.9 - Vitamin D deficiency, unspecified Plan: cont vit D (2) Annual physical exam: Code(s): Z00.00 - Encounter for general adult medical examination without abnormal findings Plan: well balanced diet, regular exercise, pt will have fasting labs, (3) Vitamin B12 deficiency: Code(s): E53.8 - Deficiency of other specified B group vitamins Plan: cont vit B12 (4) Thrombocytopenia: Code(s): D69.6 - Thrombocytopenia, unspecified Plan: monitor CBC (5) Hyperlipidemia: Comment: Stopped Simvastatin mid April 2025, causing myalgia Code(s): E78.5 - Hyperlipidemia, unspecified Plan: pt stopped taking Simvastatin 1 week ago because of myalgia, pt will check lipid profile in 1 month and try Pravastatin instead Orders: Orders Comprehensive [place]. Panel Fast Today D69.6 - Thrombocytopenia, unspecified, E53.8 - Deficiency of other specified B group vitamins, E55.9 - Vitamin D deficiency, unspecified, Z00.00 - Encounter for general adult medical examination without abnormal findings TSH reflex Free T4 Today D69.6 - Thrombocytopenia, unspecified, E53.8 - Deficiency of other specified B group vitamins, E55.9 - Vitamin D deficiency, unspecified, Z00.00 - Encounter for general adult medical examination without abnormal findings Vitamin B12 and Folate Today D69.6 - Thrombocytopenia, unspecified, E53.8 - Deficiency of other specified B group vitamins, E55.9 - Vitamin D deficiency, unspecified, Z00.00 - Encounter for general adult medical examination without abnormal findings Lipid Panel Today D69.6 - Thrombocytopenia, unspecified, E53.8 - Deficiency of other specified B group vitamins, E55.9 - Vitamin D deficiency, unspecified, Z00.00 - Encounter for general adult medical examination without abnormal findings Complete Blood Count Auto Diff Today D69.6 - Thrombocytopenia, unspecified, E53.8 - Deficiency of other specified B group vitamins, E55.9 - Vitamin D deficiency, unspecified, Z00.00 - Encounter for general adult medical examination without abnormal findings PSA,Total (Free>4and<10) Today D69.6 - Thrombocytopenia, unspecified, E53.8 - Deficiency of other specified B group vitamins, E55.9 - Vitamin D deficiency, unspecified, Z00.00 - Encounter for general adult medical examination without abnormal findings C Reactive Protein Today D69.6 - Thrombocytopenia, unspecified, E53.8 - Deficiency of other specified B group vitamins, E55.9 - Vitamin D deficiency, unspecified, Z00.00 - Encounter for general adult medical examination without abnormal findings Vitamin D 25-OH Total Today D69.6 - Thrombocytopenia, unspecified, E53.8 - Deficiency of other specified B group vitamins, E55.9 - Vitamin D deficiency, unspecified, Z00.00 - Encounter for general adult medical examination without abnormal findings Medications: New mupirocin 2% (Centany) 1 appl topical BID 15 grams 0RF Changed From sertraline 100 mg PO DAILY To sertraline 50 mg PO DAILY Quality Reporting (2019) Depression/Bipolar (159/160/161/177) PHQ-9: Total score: 1 Coding Level of Care Code Medicare Subsequent (G0439) Diagnoses Vitamin D deficiency E55.9 Annual physical exam Z00.00 Vitamin B12 deficiency E53.8 Thrombocytopenia D69.6 Hyperlipidemia E78.5 CPT Codes Advance Care Planning - Advance Care Planning discussion: On file, no changes ([id number]) Advance Care Planning - Time spent: 1-15 minutes, on File ([id number]) Additional Codes PHQ-9 - 57806 - PHQ-9 Billing: Yes ([id number]) Advance Care Planning Advance Care Planning discussion: On file, no changes Forms completed: Health Care Proxy Time spent: 1-15 minutes, on File Did not discuss due to Cultural/Spiritual beliefs: Yes
--- OUTSIDE RECORDS SUMMARY | 2025-05-13 15:32 | XMS_ITS | Patient Health Record ---
Author Organization [facility] Address [address] [place] [address] Care Team Providers Care Business Reporter Name Role Phone [place] Primary Care Provider Salvatore Kang [phone] Allergies Allergen (clinical drug ingredient) Drug/Non Drug Allergy documented on EMR Reaction Allergy Type Onset Date Status Penicillin Unknown Drug Allergy Active Reason For Referral No Information Plan Of Treatment No Information Insurance Providers Payer Name Payer Address Payer Phone Subscriber Number Group Number Insured Name Patient Relationship to Insured Coverage Start Date Coverage End Date [facility] [address] [place] [phone] [id number] KAT ÁLVAREZ Self - patient is the insured Medical (General) History Medical History History ICD Code colonoscopy and upper endoscopy 9-28-200 9 colon polyp history of reflux Denies [place],DM,CVA,Lung disease,renal dise ase deviatd septum hyperlipidemia Surgical History Surgery Date(Month/Year) cholecystectomy
== END 2025-05-13 14:01 | disposition home or self-care (01) ==
LOC: HO.HMCC 13:13
PROVIDERS: PCP Internal Medicine; Visit Provider Internal Medicine
DX: Z00.00 Encounter for general adult medical examination without abnormal findings (principal); E55.9 Vitamin D deficiency, unspecified; E53.8 Deficiency of other specified B group vitamins; D69.6 Thrombocytopenia, unspecified; E78.5 Hyperlipidemia, unspecified

== ENCOUNTER → 2025-05-13 13:13 | Outpatient (BNVA) | payer MEDICARE, SELFPAY | PROVIDERS: PCP Internal Medicine; Visit Provider Internal Medicine | DX: Z00.00 Encounter for general adult medical examination without abnormal findings (principal); E55.9 Vitamin D deficiency, unspecified; E53.8 Deficiency of other specified B group vitamins; D69.6 Thrombocytopenia, unspecified; E78.5 Hyperlipidemia, unspecified | CPT/HCPCS: 96127 ==

== ENCOUNTER 2025-06-01 06:40 | Outpatient (REF) | payer MEDICARE, SELFPAY ==
--- OUTSIDE RECORDS SUMMARY | 2025-06-01 06:45 | XMS_ITS | Patient Health Record ---
Author Organization [facility] Address [address] [place] [address] Care Team Providers Care Lens Silverer Name Role Phone [place] Primary Care Provider Salvatore Kang [phone] Allergies Allergen (clinical drug ingredient) Drug/Non Drug Allergy documented on EMR Reaction Allergy Type Onset Date Status Penicillin Unknown Drug Allergy Active Reason For Referral No Information Plan Of Treatment No Information Insurance Providers Payer Name Payer Address Payer Phone Subscriber Number Group Number Insured Name Patient Relationship to Insured Coverage Start Date Coverage End Date [facility] [address] [place] [phone] [id number] KAT ÁLVAREZ Self - patient is the insured Medical (General) History Medical History History ICD Code colonoscopy and upper endoscopy 9-28-200 9 colon polyp history of reflux Denies [place],DM,CVA,Lung disease,renal dise ase deviatd septum hyperlipidemia Surgical History Surgery Date(Month/Year) cholecystectomy
[2025-06-01 10:26] LABS: MANUAL DIFF FLAG NO
[2025-06-01 10:35] LABS: Hematocrit 42.2 % (42.0-52.0); Hemoglobin 14.5 g/dl (14.0-18.0); Imm Gran Abs Auto 0.01 X10*3/uL (0.00-0.03); Imm Gran Pct Auto 0.2 % (0.0-0.4); Lymphocytes Absolute Auto 1.9 X10*3/uL (1.2-4.9); Mean Corpuscular HGB Conc 34.4 g/dl (31.0-36.0); Mean Corpuscular Hemoglobin 32.1 pg (27.0-33.0); Mean Corpuscular Volume 93.4 fL (80.0-98.0); NRBC Abs Auto 0.000 X10*3/uL (0.0-0.012); NRBC Pct Auto 0.0 /100WBC (0.0-0.2); Platelet Count 120 X10*3/uL (160-400); Red Blood Count 4.52 X10*6/uL (4.60-5.80); White Blood Count 5.6 X10*3/uL (4.8-10.8)
[2025-06-01 11:02] LABS: PSA,Total (Free>4and<10) 2.67 ng/mL (0.00-4.00)
[2025-06-01 11:17] LABS: Folate 11.9 ng/mL (> or = 4.0); Vitamin B12 614 pg/mL (200-900)
[2025-06-01 11:19] LABS: Alanine Aminotransferase 24 U/L (0-40); Albumin Level 4.6 g/dL (3.5-5.0); Alkaline Phosphatase 80 U/L (39-117); Anion Gap 10 (12-20); Aspartate Amino Transferase 33 U/L (5-37); Blood Urea Nitrogen 19 mg/dL (9-16); Calcium 9.7 mg/dL (8.4-10.2); Carbon Dioxide 29 mmol/L (22-29); Chloride 105 mmol/L (96-108); Cholesterol 160 mg/dL (<200); Estimated Glomerular Filt Rate > 60; HDL Cholesterol 48 mg/dL (>40); Potassium 3.9 mmol/L (3.3-5.1); Sodium 140 mmol/L (135-145); Total Protein 7.0 g/dL (6.5-8.0); Triglycerides 67 mg/dL (<150)
== END 2025-06-01 06:41 | disposition home or self-care (01) ==
LOC: HO.HMGCLDS 06:40
PROVIDERS: PCP Internal Medicine; Visit Provider Internal Medicine
DX: Z00.00 Encounter for general adult medical examination without abnormal findings (principal); Z13.6 Encounter for screening for cardiovascular disorders; Z12.5 Encounter for screening for malignant neoplasm of prostate; D69.6 Thrombocytopenia, unspecified; E53.8 Deficiency of other specified B group vitamins; E55.9 Vitamin D deficiency, unspecified
CPT/HCPCS: 36415; 80053; 80061; 82306; 82607; 82746; 84153; 84443; 85025; 86140

== ENCOUNTER 2025-09-02 08:25 | Outpatient (AMB) | payer MEDICARE, SELFPAY ==
--- OUTSIDE RECORDS SUMMARY | 2025-09-02 08:29 | XMS_ITS | Patient Health Record ---
Author Organization [facility] Address [address] [place] [address] Care Team Providers Care Bag Making Machine Operator Name Role Phone [place] Primary Care Provider Salvatore Kang [phone] Allergies Allergen (clinical drug ingredient) Drug/Non Drug Allergy documented on EMR Reaction Allergy Type Onset Date Status Penicillin Unknown Drug Allergy Active Reason For Referral No Information Plan Of Treatment No Information Insurance Providers Payer Name Payer Address Payer Phone Subscriber Number Group Number Insured Name Patient Relationship to Insured Coverage Start Date Coverage End Date [facility] [address] [place] [phone] [id number] KAT ÁLVAREZ Self - patient is the insured Medical (General) History Medical History History ICD Code colonoscopy and upper endoscopy 9-28-200 9 colon polyp history of reflux Denies [place],DM,CVA,Lung disease,renal dise ase deviatd septum hyperlipidemia Surgical History Surgery Date(Month/Year) cholecystectomy
--- NOTE | 2025-09-02 08:30 | A.OFFVIS_ITS ---
Intake Visit Reasons: PSA/PVR Follow Up(Set) Last Seen 2022 Intake Note: Reason for Visit: PSA/PVR Follow Up- Last Seen 2022 Urology Meds: Tamsulosin Blood Thinners: None Labs: PSA- 2.67 (06/01/2025) BUN:19 Creatinine: 0.95 (06/01/2025) PSA- 2.24 (04/28/2024) Imaging: Abdomen Ultrasound- 11/14/2023 Last PVR: 12ml PVR: 51ml Head Sulfide Operator Required: No Accompanied by: Self / Same As Patient Allergies Penicillins Allergy (Unknown, Verified 09/02/25 08:34) Hives HPI Comments Details: Ajay MCKENZIE is a very pleasant male. They are a patient of Dr Hunter. He is seen for the following urologic conditions - lower urinary tract symptoms - chronic prostatitis Last seen in early 2022 Remains on tamsulosin Has some issues with a shy bladder but otherwise stable Will let us know if has issues during the Lower Urinary Tract Symptoms: Not waking for urination Current visit is for lower urinary tract symptoms, predominate obstructive symptoms. Current treatment includes alpha jeanne, tamsulosin. Prostate Symptom Score 11/17 , Moderate (9-19), Bother 3. Symptoms include 11/ , weak stream, nocturia (>2), and are progressing. PSA 03/28 2.5, 06/04 2.7 Prostate volume 30-50gm. Testing at next visit will include bladder scan. Prostatitis/CPPS: Baseline discomfort is still 2-3 They present for further evaluation of, chronic prostatitis. He is currently being treated with Completed course of antibiotics and anti-inflammatories. Symptoms have been present 02/26 first episode Has progression with pelvic floor discomfort associated loss of appetite and discomfort when sitting. Severity of the symptom severe. Laboratory testing included 05/29 Microgen Staph Epi - Cephalsporin sensitive - MRI May 2019 claustrophobia Prostatitis was diagnosed First episode February 2019 [facility] Medical History Tremor Flu-like symptoms Annual physical exam Sleep apnea Fatigue Vitamin D deficiency Depression Chronic male pelvic pain Insomnia Anxiety Facet arthropathy, lumbar BPH (benign prostatic hyperplasia) GERD (gastroesophageal reflux disease) Hyperlipidemia Surgical History History of endoscopy H/O colonoscopy Hx of cholecystectomy History of rhinoplasty Family History Mother COPD (chronic obstructive pulmonary disease) Brain aneurysm Father Carotid stenosis Brother Heart problem Brother No problems noted. Social History Household Members: None Housing: House Patient Tobacco Use Status: Never used Tobacco e-Cigarette/Vaping Use: Never Used service: No Current occupational status: retired Cognitive needs: No Hearing needs: No Vision needs: Yes Review of Systems Const Denies chills and Denies fever(s) Card Reports no additional complaints and Denies syncope Resp Denies cough GI Denies abdominal pain and Denies heartburn Reports as per HPI and Denies change in libido Neuro Denies syncope Psych Denies change in libido Endo Denies change in libido Physical Exam Const General: cooperative, healthy appearing, comfortable and no acute distress Orientation/consciousness: patient oriented x3 HEENT Face and sinus: Yes normal facial exam Mouth: moist mucous membranes Neck Neck: Yes normal visual inspection, Yes full ROM and Yes trachea midline Chest Chest palpation & inspection: normal inspection of the chest Resp Effort & Inspection: normal respiratory effort, able to speak in complete sentences and no respiratory distress GI Inspection: Yes normal to inspection Back/Spine/Pelvis Cervical Spine: normal cervical lordosis Thoracic/Lumbar Spine: thoracic and lumbar spine normal to inspection Skin General skin exam: no rashes or lesions noted Neuro General: patient oriented x3, gait normal, tone normal and moves all extremities Extrem General: Yes normal to inspection and Yes capillary refill normal Office Procedures Post Void Residual Post Residual Void Post Void Residual (PVR): 51 72130-Apxa Void Residual by ultrasound Assessment & Plan Assessment & Plan (1) BPH (benign prostatic hyperplasia): Comment: f/u by Dr. Islas Code(s): N40.0 - Benign prostatic hyperplasia without lower urinary tract symptoms Category: Medical (2) Chronic male pelvic pain: Code(s): R10.2 - Pelvic and perineal pain; G89.29 - Other chronic pain Category: Medical Plan Twelve month follow-up Orders: Orders AMB Post Void Residual by ultrasound Today N40.0 - Benign prostatic hyperplasia without lower urinary tract symptoms Patient Instructions: This note is constructed using voice recognition software. While every effort has been made to ensure accuracy application programmer analyst errors may have been included. Imaging studies, laboratory and physical exam results were discussed and reviewed in detail. No major barriers to patient understanding were identified. An opportunity to ask questions regarding the treatment plan was provided. All questions were answered. The patient expressed understanding and agreement with the above treatment plan. The patient is aware they should contact our office by phone for worsening of their current condition or the appearance of new urologic symptoms. Compliance is encouraged with any medications and followup testing that is ordered. It is a privilege to participate in the urologic care of your patient. If you have any questions or concerns regarding treatment for the above conditions, or other urologic issues, please do not hesitate to contact me. The office telephone contact is [phone]. Sincerely, Dr Donell Islas MD, [facility] - Urology Compassionate Specialist Care for the Genitourinary System Coding Level of Care Code Est Pt Level 4 (25066) Diagnoses BPH (benign prostatic hyperplasia) N40.0 Chronic male pelvic pain R10.2; G89.29 CPT Codes Post Residual Void - PVR CPT Code: 06516-Tucj Void Residual by ultrasound ([id number])
== END 2025-09-02 08:58 | disposition home or self-care (01) ==
LOC: HO.HUSH 08:26
PROVIDERS: PCP Internal Medicine; Visit Provider Urology
DX: N40.0 Benign prostatic hyperplasia without lower urinary tract symptoms (principal); R10.20 Pelvic and perineal pain unspecified side; G89.29 Other chronic pain
CPT/HCPCS: 99214

== ENCOUNTER → 2025-09-02 08:25 | Outpatient (BNVA) | payer MEDICARE, SELFPAY | PROVIDERS: PCP Internal Medicine; Visit Provider Urology | DX: N40.0 Benign prostatic hyperplasia without lower urinary tract symptoms (principal); R10.20 Pelvic and perineal pain unspecified side; G89.29 Other chronic pain | CPT/HCPCS: 51798; 99212 ==